=== PATIENT | female | born 1980 | race Caucasian/White ===

== ENCOUNTER 2025-01-28 16:20 | Outpatient (CLI) | payer BC, SELFPAY ==
--- OUTSIDE RECORDS SUMMARY | 2024-12-18 14:48 | XMS_ITS | Encounter Summary ---
Author Organization [facility] Address [address] [place] [address] Care Team Providers Care Rivet Tester Name Role Phone Edmar Cazares MD Primary Care Provider Reason for Referral * Diagnostic Imaging (Routine) - Closed Specialty Diagnoses / Procedures [facility] To Contact Radiology Diagnoses Encounter for screening mammogram for malignant neoplasm of breast Procedures Mammo Screening Digital Tomosynthesis Bilateral With CAD Edmar Cazares MD [address] [place] [address] Phone: tel: fax: [address] [address] Phone: tel: Referral ID Status Reason Start Date Expiration Date Visits Re quested Visits Authorized [id number] Closed 08/06/2024 08/06/2025 1 1 Reason for Visit * Diagnostic Imaging (Routine) - Closed Specialty Diagnoses / Procedures [facility] Ref[facility] To Contact Radiology Diagnoses Encounter for screening mammogram for malignant neoplasm of breast Procedures Mammo Screening Digital Tomosynthesis Bilateral With CAD Edmar Cazares MD [address] [place] [address] Phone: tel: fax: [address] [address] Phone: tel: Referral ID Status Reason Start Date Expiration Date Visits Re quested Visits Authorized [id number] Closed 08/06/2024 08/06/2025 1 1 Encounter Details Date Type Department Care Team (Latest Contact Info) Description 12/18/2024 2:48 PM EDT - 12/18/2024 11:59 PM EDT Hospital Encounter [facility] [address] [place] [address] Edmar Cazares MD [address] [place], [place] [phone] Encounter for screening mammogram for malignant neoplasm [...] Master's degree (e.g., MA, MS, Chalo, MEd, ADVENTURE CHALLENGE INSTRUCTOR, JIMMIE) 04/28/2023 Comments No Sex and Gender Information Value Date Recorded Sex Assigned at Not on file Legal Sex Female 4:03 PM EDT Gender Identity Not on file Sexual Orientation Not on file documented as of this encounter Medications at Time of Discharge Acetylcysteine (Nac 600) capsule capsule ciprofloxacin (CIPRO) 500 MG tabletIndications: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 14 tablet 01/26/2024 DHEA 10 MG capsule Inositol 650 MG tablet methylPREDNISolone (MEDROL) 4 MG dose packIndications:Crohn 's disease with complication, unspecified gastrointestinal tract location Take as directed on package instructions. 1 each 01/26/2024 metroNIDAZOLE (FLAGYL) 500 MG tabletIndications:Tire Shop Mechanic hn's disease with complication, unspecified gastrointestinal tract location Take 1 tablet by mouth 3 (Three) Times a Day. 21 tablet 01/26/2024 naltrexone 1 mg/mL oral suspension 10/26/2020 [place]-3 Fatty Acids (FISH-EPA PO) 03/28/2022 MV-Min-Fe Fum-FA-DHA ( 1 PO) 03/28/2022 promethazine-dextrome thorphan (PROMETHAZINE-DM) 6.25-15 MG/5ML syrupIndications:Acut e bronchitis with bronchospasm Take 5 ml QID PRN cough/congest ion 180 mL 07/10/2023 Urea (HYDRO 40 EX) 06/28/2022 vitamin E 100 UNIT capsule documented as of this encounter Plan of Treatment Not on file documented as of this encounter Procedures Procedure [...] breast documented in this encounter Care Teams Rivet Tester Relationship Specialty Start Date End Date Edmar Cazares MD [address] [place] [address] PCP - General Box Coverer Hand 11/07/24 documented as of this encounter
--- OUTSIDE RECORDS SUMMARY | 2025-01-28 16:22 | XMS_ITS | Clinical Summary ---
Author Organization [facility] Address [address] [place] [address] Care Team Providers Care Snow Groomer Name Role Phone Edmar Cazares MD Primary Care Provider [phone] Allergies Active Allergy Reactions Criticality Noted Date Comments Adalimumab Unknown - High Severity 04/28/2023 Influenza Vac Split Quad Unknown - High Severity 04/28/2023 Infliximab Unknown - Low Severity 04/28/2023 Medications naltrexone 1 mg/mL oral suspension 1 Active DHEA 10 MG capsule A ctive [place]-3 Fatty Acids (FISH-EPA PO) 2 Active vitamin E 100 UNIT capsule Active Acetylcysteine (Nac 600) capsule capsule Active MV-Min-Fe Fum-FA-DHA ( 1 PO) 2 Active Urea (HYDRO 40 EX) 3 Active Inositol 650 MG tablet Active promethazine-dextrom ethorphan (PROMETHAZINE-DM) 6.25-15 MG/5ML syrupIndications:Acu te bronchitis with bronchospasm Take 5 ml QID PRN cough/conges tion 180 mL 4 Active ciprofloxacin (CIPRO) 500 MG tabletIndications:Cr ohn's disease with complication, unspecified gastrointestinal tract location Take 1 tablet by mouth 2 (Two) Times a Day. 14 tablet 4 Active metroNIDAZOLE (FLAGYL) 500 MG tabletIndications:Cr ohn's disease with complication, unspecified gastrointestinal tract location Take 1 tablet by mouth 3 (Three) Times a Day. 21 tablet 4 Active methylPREDNISolone (MEDROL) 4 MG dose packIndications:Croh n's disease with complication, unspecified gastrointestinal tract location Take as directed on package instructions . 1 each Active Active Problems Problem Noted Date Diagnosed Date Normal gynecologic examination 04/28/2023 Overview (05/02/2023): SCREENING TESTS Year 2017 2017 2018 2019 2020 2021 2022 2023 2024 2025 2026 2027 2028 2029 2030 2031 2032 Age 43 PAP 11 HPV high risk 11 BETSY [Birads] MAE (5 year) Tyrer Viki (lifetime) Colonoscopy DEXA [T-score] Frax [hip/any] Enter the month test was performed. If month not known, enter X' Black numbers = normal results Red numbers = abnormal results Black X = patient reported normal Red X - patient reported abnormal Referred by: Profession: Other info: Encounters Date Type Department Care Team Description 12/18/2024 2:48 PM EDT - 12/18/2024 11:59 PM [place] [address] Edmar Cazares MD Encounter for screening mammogram for malignant neoplasm of breast Discharge Disposition: Home or Self Care 12/18/2024 Travel from Last 3 Months Family History Medical History Relation Name Comments Breast cancer Paternal Aunt Ovarian cancer Paternal Aunt Relation Name Status Comments Paternal Aunt Social History Tobacco Use Types Packs/Day Years Used Date Smoking Tobacco: Never Passive Smoke Exposure: Never Smokeless Tobacco: Never Tobacco Cessation:Counseling Given: Not Answered Alcohol Use Standard Drinks/Week Comments Not Currently 0 (1 standard drink = 0.6 oz pur e alcohol) Education Answer Date Recorded What is the highest level of school you have completed or the highest degree you have received? Master's degree (e.g., MA, MS, Chalo, MEd, GLOBAL ACCOUNT EXECUTIVE, JIMMIE) 04/28/2023 Comments No Sex and Gender Information Value Date Recorded Sex Assigned at Not on file Legal Sex Female 4:03 PM EDT Gender Identity Not on file Sexual Orientation Not on file Last Filed Vital Signs Vital Sign Reading Time Taken Comments Blood Pressure 102/64 01/26/2024 4:54 PM EDT Pulse 96 01/26/2024 4:54 PM EDT Temperature 37.1 C (98.7 F) 01/26/2024 4:54 PM EDT Respiratory Rate 16 01/26/2024 4:54 PM EDT Oxygen Saturation 95% 01/26/2024 4:54 PM EDT Inhaled Oxygen Concentration - - Weight 37.2 kg (82 lb) 01/26/2024 4:54 PM EDT Height 157.5 cm (5' 2 ) 01/26/2024 4:54 PM EDT Body Mass Index 15 01/26/2024 4:54 PM EDT Plan of Treatment Health Maintenance Due Date Last Done Comments ANNUAL PHYSICAL 04/27/2023 HEPATITIS C SCREENING 04/27/2023 COVID-19 Vaccine (1 - 2023-2 5 season) 2024 Annual Gynecologic Pelvic an d Breast Exam 04/29/2024 04/28/2023 TDAP/TD VACCINES (3 - Td or Tdap) 12/22/2025 12/23/2015, 12/10/2015 PAP SMEAR 04/28/2026 04/28/2023 MAMMOGRAM 12/18/2026 12/18/2024, 08/30/2023, 10/26/2021 Pneumococcal Vaccine 0-49 Aged Out No longer eligible based on patient's age to complete this topic Procedures Procedure Name Priority Date/Time Associated Diagnosis Comments MAMMO SCREENING DIGITAL TOMOSYNTHESIS BILATERAL W CAD Routine 12/18/2024 4:07 PM EDT Encounter for screening mammogram for malignant neoplasm of breast AMBRY GENETIC ASSESSMENT Routine 12/18/2024 9:24 AM EDT LIQUID-BASED PAP SMEAR WITH HPV GENOTYPING REGARDLESS OF INTERPRETATION, [facility] (ZACK,COR,MAD) Routine 04/28/2023 9:07 AM EST Well woman exam with routine gynecological exam from Last 3 Months or Most Recently Relevant to Health Maintenance Results * Mammo Screening Digital Tomosynthesis Bilateral [...] Cazares MD IMG MAMMOGRAPHY ORDERABLES Final Result * Sovi GENETIC RISK ASSESSMENT QUESTIONNAIRE - , (12/18/2024 9:24 AM EDT) Pathologist [facility] [place] 8.4 [employer] NCCN NCCN not met [facility] Comment:High Risk Cancer Ris k Assessment 12/18/2024 9:24 AM EDT us Edmar Cazares MD GENETIC TESTING Final Result [facility]
[address] [place] [address], [place] [phone] * LIQUID-BASED PAP SMEAR WITH HPV GENOTYPING REGARDLESS OF INTERPRETATION (ZACK,COR,MAD) (04/28/2023 9:07 AM EST) Pathologist [facility] Reference Lab Report [facility] [address] [place] [address] or [phone] Yo Ga M.D., Auctioneer Automobile PATIENT NAME [facility] [id number] AGE SEX SSN CLIENT REF # [id number] 43 1980 F [id number] MESHA ORTEGA APRN REQUESTING Artemio ATTENDING Artemio COPY TO. [address], [facility] [address] [place] [address] DATE COLLECTED DATE RECEIVED DATE REPORTED 04/28/2023 04/28/2023 05/02/2023 ThinPrep Pap with Cytyc Imaging DIAGNOSIS: Negative for intraepithelial lesion or malignancy Multiple factors can influence accuracy of Pap tests; therefore, screening at regular intervals is necessary for early cancer detection. SPECIMEN ADEQUACY: SATISFACTORY FOR EVALUATION Transformation zone is present. SOURCE OF SPECIMEN: CERVICAL/ENDOCERVI BENTON SLIDES: 1 CLINICAL HISTORY: Well woman exam with routine gynecological exam HPV HR-HPV POOL: Negative The Aptima HPV assay is an in vitro nucleic acid amplification test for the qualitative detection of E6/E7 viral messenger RNA from 14 high risk types of HPV in cervical specimens. The high risk HPV types detected include: 16, 18, 31, 33, 35, 39, 45, 51, 52, 56, 58, 59, 66, 68 Chlamydia / Gonorrhea CHLAMYDIA TRACHOMATIS: Negative NEISSERIA GONORRHOEAE: Negative The Aptima Combo 2 assay is a target amplification nucleic acid probe test that utilizes target capture for the in vitro qualitative detection and differentiation of ribosomal RNA from Chlamydia trachomatis and Neisseria gonorrhoeae to aid in the diagnosis of chlamdial and gonococcal disease using the [place] system. Trichomonas TRICHOMONAS VAGINALIS: Negative The Aptima Trichomonas vaginalis assay is an in vitro qualitative nucleic acid amplification test for the detection of ribosomal RNA to aid in the diagnosis of trichomoniasis. WEAPONS SPECIALIST: MISSY EUGENE (ASCP) CPT CODES: 12253, 72757, 10851, 52288, 78878 05/02/2023 2:07 PM [facility] ThinPrep Vial Cervix uteri structure / Unknown Collection / Unknown 04/28/2023 9:07 AM EST 04/28/2023 9:07 AM EST Mesha Ortega CNM PATHOLOGY/CYTOLOGY ORDERABLES Final Result [facility]
[address] [place] [address], [place] [phone] from Last 3 Months or Most Recently Relevant to Health Maintenance Insurance [facility] PPO Care Teams Snow Groomer Relationship Specialty Start Date End Date Edmar Cazares MD [address] [place] [address] PCP - General Senior Database Engineer 11/07/24
--- OUTSIDE RECORDS SUMMARY | 2025-01-28 16:22 | XMS_ITS | Clinical Summary ---
Author Organization Healthcare Address [address] [place] [id number] Care Team Providers Care Deputy Manager Name Role Phone Unavailable Primary Care Provider Unavailabl e Immunizations Immunization Administration Dates Next Due Tdap 12/23/2015,12/10/2015 Family History Medical History Relation Name Comments Irritable bowel syndrome Brother Hyperlipidemia Father Hypertension Mother Diabetes type I Paternal Grandfather Hypothyroidism Paternal Grandmother Lung cancer Paternal Grandmother Relation Name Status Comments Brother Father Mother Paternal Grandfather Paternal Grandmother Social History Tobacco Use Types Packs/Day Years Used Date Smoking Tobacco: Never Alcohol Use Standard Drinks/Week Comments No 0 (1 standard drink = 0.6 oz pur e alcohol) Comments Unknown Sex and Gender Information Value Date Recorded Sex Assigned at Not on file Legal Sex Female 7:19 PM EDT Gender Identity Not on file Sexual Orientation Not on file Last Filed Vital Signs Vital Sign Reading Time Taken Comments Blood Pressure 98/64 06/16/2017 2:22 PM EST Pulse - - Temperature - - Respiratory Rate - - Oxygen Saturation - - Inhaled Oxygen Concentration - - Weight 43.9 kg (96 lb 12.5 oz) 06/16/2017 2:22 P M EST Height 152.4 cm (5') 06/16/2017 2:22 PM EST Body Mass Index 18.9 06/16/2017 2:22 PM EST Plan of Treatment Not on file
--- OUTSIDE RECORDS SUMMARY | 2025-01-28 16:22 | XMS_ITS | Encounter Summary ---
Author Organization [facility] Address [address] [place] [address] Care Team Providers Care Construction Or Leak Gang Laborer Name Role Phone Edmar Cazares MD Primary Care Provider [phone] Encounter Details Date Type Department Care Team (Latest Contact Info) Description 12/18/2024 Travel Social History Tobacco Use Types Packs/Day Years [...] Master's degree (e.g., MA, MS, Chalo, MEd, BLOW MOULDING MACHINE OPERATOR, JIMMIE) 04/28/2023 Comments No Sex and Gender Information Value Date Recorded Sex Assigned at Not on file Legal Sex Female 4:03 PM EDT Gender Identity Not on file Sexual Orientation Not on file documented as of this encounter Plan of Treatment Not on file documented as of this encounter Visit Diagnoses Not on filedocumented in this encounter Care Teams Construction Or Leak Gang Laborer Relationship Specialty Start Date End Date Edmar Cazares MD [address] [place] [address] PCP - General Housekeeper Child Care 11/07/24 documented as of this encounter
[2025-01-28 16:46] LABS: Hematocrit 28.1 % (37.0-47.0); Hemoglobin 8.7 g/dL (12.2-16.2); Immature Granulocytes % 0.4 %; Mean Corpuscular HGB Conc 31.0 g/dL (31.8-35.4); Mean Corpuscular Hemoglobin 20.4 pg (27.0-31.2); Mean Corpuscular Volume 65.8 fl (81-99); Nucleated Red Blood Cells % 0 %; Platelet Count 580 K/mm3 (142-424); Red Blood Count 4.27 M/mm3 (4.20-5.40); Red Cell Distribution Width-SD 45.0 fL; White Blood Count 7.4 K/mm3 (4.8-10.8)
[2025-01-28 17:08] LABS: Albumin Level 3.4 g/dl (3.5-5.0); Chloride 104 mmol/L (98-107); Sodium 136 mmol/L (136-145)
[2025-01-28 17:09] LABS: Potassium 4.0 mmoL/L (3.5-5.1)
[2025-01-28 17:11] LABS: Alanine Aminotransferase 9 U/L (12-78); Albumin/Globulin Ratio 1.2 (1.1-1.8); Alkaline Phosphatase 104 U/L (38-126); Anion Gap 11.0 mEq/L (5-15); Aspartate Amino Transferase 18 U/L (14-36); Bilirubin,Total 0.2 mg/dl (0.2-1.3); Blood Urea Nitrogen 9 mg/dl (7-17); Calcium 8.5 mg/dl (8.4-10.2); Carbon Dioxide 25 mmol/L (22.0-30.0); Creatinine,Serum 0.60 mg/dl (0.52-1.04); Estimated Glomerular Filt Rate 109 ml/min (>60); GFR (African American) 131 ML/MIN (>60); Globulin 2.9 g/dL (1.3-3.2); Glucose 107 mg/dl (74-100); Iron 24 ug/dL (37-170); Total Protein,Serum 6.3 g/dl (6.3-8.2)
[2025-01-28 17:19] LABS: C-Reactive Protein 94.7 mg/L (0-4)
[2025-01-28 17:21] LABS: Total Iron Binding Capacity 235 ug/dL (265-497)
[2025-01-28 18:42] LABS: Vitamin B12 > 1000 pg/mL (239-931)
[2025-01-31 15:11] LABS: Saccharomyces cerevisiae, IgA <20.0 Units (0.0-24.9); Saccharomyces cerevisiae, IgG 26.4 Units (0.0-24.9)
[2025-02-08 14:11] LABS: 1,25 Dihydroxy Vitamin D 58 pg/mL (.); 1,25-Dihydroxy, Vitamin D-2 <10 pg/mL (.); 1,25-Dihydroxy, Vitamin D-3 58 pg/mL (.)
== END 2025-01-28 23:59 | disposition home or self-care (01) ==
LOC: LAB 16:21
PROVIDERS: PCP General Practice; Visit Provider Internal Medicine Gastroenterology
DX: K50.813 Crohn's disease of both small and large intestine with fistula (principal); K74.69 Other cirrhosis of liver; B19.20 Unspecified viral hepatitis C without hepatic coma; R63.4 Abnormal weight loss; R14.0 Abdominal distension (gaseous)
CPT/HCPCS: 36415; 80053; 82607; 82652; 83540; 83550; 85025; 85651; 86140; 86256; 86671

== ENCOUNTER 2025-02-14 10:57 | Outpatient (CLI) | payer BC, SELFPAY ==
--- OUTSIDE RECORDS SUMMARY | 2023-12-05 14:15 | XMS_ITS ---
Author Organization [facility] Address [address] [place] [phone] Care Team Providers Care Tnt Line Supervisor Name Role Phone Unknown, PCP Primary Care Provider Jeannette Castellano, [id number] Annette [facility] [phone] REASON FOR VISIT Tuberculosis (TB) / PPD Test Encounters Encounter Location Date Provider Diagnosis [address] [facility] [address] [place] [address] 12/05/2023 Annette Castellano Plan Of Treatment No Information Progress Notes * Riley JACOBB:1980 (45 yo F)Acc No.[id number]:12/05/2023 Patient: Meri TAPIA Provider: Oscar Castellano APRN :1980 A ge:43 Y S ex:Female Date:12/05/2023 External Visit ID:[id number] [facility] [facility] Pcp:PCP Unknown Subjective: * Chief Complaints: * 1 . Tuberculosis (TB) / PPD Test. * Medical History: Objective: * Vitals: Assessment: Plan: * Treatment: * Billing Information: * Visit Code: * Procedure Codes: Care Plan Details* * Electronic signature of TA14 304 Annette Castellano APRN on 02/14/2025 at 10:00 AM CDT Sign off status: Pending * Provider: Oscar Castellano APRN Date: 12/05/2023 Generated for Jessica ng/Faxing/eTransmitting on: 02/14/2025 10:00 AM CDT
--- OUTSIDE RECORDS SUMMARY | 2024-12-18 14:48 | XMS_ITS | Encounter Summary ---
Author Organization [facility] Address [address] [place] [address] Care Team Providers Care Meat Grader Name Role Phone Edmar Cazares MD Primary Care Provider [phone] Reason for Referral * Diagnostic Imaging (Routine) - Closed Specialty Diagnoses / Procedures [facility] Referred To Contact Radiology Diagnoses Encounter for screening mammogram for malignant neoplasm of breast Procedures Mammo Screening Digital Tomosynthesis Bilateral With CAD Edmar Cazares MD [address] [place] [address] Phone: tel: fax: [address] [address] Phone: tel: Referral ID Status Reason Start Date Expiration Date Visits Re quested Visits Authorized [id number] Closed 08/06/2024 08/06/2025 1 1 Reason for Visit * Diagnostic Imaging (Routine) - Closed Specialty Diagnoses / [facility] To Contact Radiology Diagnoses Encounter for screening mammogram for malignant neoplasm of breast Procedures Mammo Screening Digital Tomosynthesis Bilateral With CAD Edmar Cazares MD [address] [place] [address] Phone: tel: fax: [address] [address] Phone: tel: Referral ID Status Reason Start Date Expiration Date Visits Re quested Visits Authorized [id number] Closed 08/06/2024 08/06/2025 1 1 Encounter Details Date Type Department Care Team (Latest Contact Info) Description 12/18/2024 2:48 PM EDT - 12/18/2024 11:59 PM EDT Hospital Encounter [facility] [address] [place] [address] Edmar Cazares MD [address] [place], [place] [id number] Encounter for screening mammogram for malignant neoplasm of breast Discharge Disposition: Home or Self Care Social History Tobacco Use Types Packs/Day Years Used Date Smoking Tobacco: Never Passive Smoke Exposure: Never Smokeless Tobacco: Never Alcohol Use Standard Drinks/Week Comments Not Currently 0 (1 standard drink = 0.6 oz pur e alcohol) Education Answer Date Recorded What is the highest level of school you have completed or the highest degree you have received? Master's degree (e.g., MA, MS, Chalo, MEd, CORPORATE TRAFFIC MANAGER, JIMMIE) 04/28/2023 Comments No Sex and Gender Information Value Date Recorded Sex Assigned at Not on file Legal Sex Female 4:03 PM EDT Gender Identity Not on file Sexual Orientation Not on file documented as of this encounter Medications at Time of Discharge Acetylcysteine (Nac 600) capsule capsule ciprofloxacin (CIPRO) 500 MG tabletIndications:Energy Derivatives Trader hn's disease with complication, unspecified gastrointestinal tract location Take 1 tablet by mouth 2 (Two) Times a Day. 14 tablet 01/26/2024 DHEA 10 MG capsule Inositol 650 MG tablet methylPREDNISolone (MEDROL) 4 MG dose packIndications:Crohn 's disease with complication, unspecified gastrointestinal tract location Take as directed on package instructions. 1 each 01/26/2024 metroNIDAZOLE (FLAGYL) 500 MG tabletIndications:Energy Derivatives Trader hn's disease with complication, unspecified gastrointestinal tract location Take 1 tablet by mouth 3 (Three) Times a Day. 21 tablet 01/26/2024 naltrexone 1 mg/mL oral suspension 10/26/2020 [place]-3 Fatty Acids (FISH-EPA PO) 03/28/2022 MV-Min-Fe Fum-FA-DHA ( 1 PO) 03/28/2022 promethazine-dextrome thorphan (PROMETHAZINE-DM) 6.25-15 MG/5ML syrupIndications:Acut e bronchitis with bronchospasm Take 5 ml QID PRN cough/congest ion 180 mL 07/10/2023 Urea (HYDRO 40 EX) 06/28/2022 vitamin E 100 UNIT capsule documented as of this encounter Plan of Treatment Upcoming Encounters Date Type Department Care Team (Late st Contact Info) Description 02/21/2025 12:30 PM EDT Appointment [facility] [address] [place] [address] documented as of this encounter Procedures Procedure Name Priority Date/Time Associated Diagnosis Comments MAMMO SCREENING DIGITAL TOMOSYNTHESIS BILATERAL W CAD Routine 12/18/2024 4:07 PM EDT Encounter for screening mammogram for malignant neoplasm of breast documented in this encounter Results * Mammo Screening Digital Tomosynthesis Bilateral With CAD (12/18/2024 4:07 PM EDT) Anatomical Region Laterality Modality Breast N/A Mammography 12/24/2024 4:22 PM EDT Impressions 12/24/2024 4:27 PM EDT No findings suspicious for malignancy. ACR BI-RADS CATEGORY: 1, NEGATIVE RECOMMENDATION: Yearly mammogram, yearly clinical breast exam, and encourage self breast awareness. CAD was used. The standard false negative rate of mammography is between 10% and 25%. Complex patterns or increased breast density will markedly elevate the false negative rate of mammography. A letter, in lay terminology, with the results of this exam will be mailed to the patient. If there is a palpable area of concern, biopsy should be considered regardless of imaging findings. 12/24/2024 4:27 PM by Rosangela Carvajal MD on Narrative 12/24/2024 4:27 PM EDT ROUTINE DIGITAL SCREENING MAMMOGRAM WITH TOMOSYNTHESIS HISTORY: Routine screening. IMAGE COMPARISON: Extending to 2021. TECHNIQUE: Low dose full field digital breast tomosynthesis imaging was performed with 2D and 3D acquisitions consisting of bilateral CC and MLO views. Implant displaced views. FINDINGS: There are scattered fibroglandular densities. The fibroglandular pattern appears stable. There is no mass, worrisome microcalcifications, or architectural distortion to suggest development of malignancy. There are stable subpectoral silicone implants in place. Edmar Cazares MD IMG MAMMOGRAPHY ORDERABLES Final Result documented in this encounter Visit Diagnoses Diagnosis Encounter for screening mammogram for malignant neoplasm of breast documented in this encounter Care Teams Meat Grader Relationship Specialty Start Date End Date Edmar Cazares MD [address] [place] [address] PCP - General Aerial Planting And Cultivation Manager 11/07/24 documented as of this encounter
--- OUTSIDE RECORDS SUMMARY | 2025-02-06 13:40 | XMS_ITS | Encounter Summary ---
[facility] Organization [facility] Address [address] [place] [id number] Care Team Providers Care Swine Genetics Researcher Name Role Phone Edmar Cazares MD Primary Care Provider [phone] Encounter Details Date Type Department Care Team (Late Contact Info) Description 02/06/2025 1:40 PM EDT Lab [facility] [address] [place] [address] Crohn's disease of both small [...] Master's degree (e.g., MA, MS, Chalo, MEd, STYLE ADVISOR, JIMMIE) 04/28/2023 Comments No Sex and Gender Information Value Date Recorded Sex Assigned at Not on file Legal Sex Female 4:03 PM EDT Gender Identity Not on file Sexual Orientation Not on file documented as of this encounter Plan of Treatment Upcoming Encounters Date Type Department Care Team (Late st Contact Info) Description 02/21/2025 12:30 PM EDT Appointment [facility] OUTPATIENT ONCOLOGY [address] [place] [address] documented as of this encounter Procedures Procedure Name Priority Date/Time Associated Diagnosis Comments QUANTIFERON TB GOLD PLUS CLIENT INCUBATED KIT Routine 02/06/2025 1:37 PM EDT Crohn's disease of both small and large intestine with fistula Iron deficiency anemia, unspecified iron deficiency anemia type documented in this encounter Results * (ABNORMAL) QuantiFERON TB Plus Client Incubated Kit (02/06/2025 1:37 PM EDT) [facility] QuantiFERON Criteria Comment 02/08/2025 11:07 PM [...] 1:37 PM EDT 02/06/2025 1:37 PM EDT [facility] - 02/08/2025 11:07 PM EDT Performed at: [address] [place] [id number] Twisting Operator: Yoel More PhD, Phone: [phone] Rey Mooney MD LAB BLOOD ORDERABLES Final Result [facility] [address] [place] [address], documented in this encounter Visit Diagnoses Diagnosis Crohn's disease of both small and large intestine with fistula Iron deficiency anemia, unspecified iron deficiency anemia type documented in this encounter Care Teams Swine Genetics Researcher Relationship Specialty Start Date End Date Edmar Cazares MD [address] [place] [address] PCP - General Fiscal Specialist 11/07/24 documented as of this encounter
--- OUTSIDE RECORDS SUMMARY | 2025-02-14 11:00 | XMS_ITS | Encounter Summary ---
Author Organization [facility] Address [address] [place] [address] Care Team Providers Care Behavioral Health Therapist Name Role Phone Edmar Cazares MD Primary Care Provider [phone] Encounter Details Date Type Department Care Team (Latest Contact Info) Description 02/06/2025 Travel Social History Tobacco Use Types Packs/Day [...] degree (e.g., MA, MS, Chalo, MEd, DIRECTOR IMMUNOLOGY, JIMMIE) 04/28/2023 Comments No Sex and Gender Information Value Date Recorded Sex Assigned at Not on file Legal Sex Female 4:03 PM EDT Gender Identity Not on file Sexual Orientation Not on file documented as of this encounter Plan of Treatment Upcoming Encounters Date Type Department Care Team (Late st Contact Info) Description 02/21/2025 12:30 PM EDT Appointment [facility] OUTPATIENT ONCOLOGY [address] [place] [address] documented as of this encounter Visit Diagnoses Not on filedocumented in this encounter Care Teams Behavioral Health Therapist Relationship Specialty Start Date End Date Edmar Cazares MD [address] [place] [address] PCP - General Animal Sitter 11/07/24 documented as of this encounter
--- OUTSIDE RECORDS SUMMARY | 2025-02-14 11:00 | XMS_ITS | Patient Health Record ---
Author Organization [facility] Address [address] [place] [address] Care Team Providers Care Hosiery Repairer Name Role Phone Unknown, PCP Primary Care Provider Jeannette Castellano, [id number] [phone] Reason For Referral No Information Medications Medication SIG (Take, Route, Fr equency, Duration) Notes Start Date End Date Status Naltrexone HCl 50 MG 1 tab(s) orally once a day Active Cefdinir 300 MG 1 cap(s) orally ever y 12 hours; Duration: 10 day(s) 12/10/2017 Active Ciprodex 0.3-0.1 % 4 gtt in each affect ed ear 2 times a day; Duration: 7 days 12/10/2017 Ac tive Immunizations Vaccine Route Administration Date Status Comme nts PPD Aplisol ID Intradermal 05/13/2018 Administered PPD Aplisol ID Intradermal 05/13/2020 Administered PPD Aplisol ID Intradermal 02/15/2021 Administered PPD Aplisol ID Intradermal 12/06/2022 Administered PPD Aplisol ID Intradermal 05/15/2024 Administered zPPD ID Intradermal 04/17/2016 Administered Encounters Encounter Location Date Provider Diagnosis [id number] [address] 05/15/2024 Annette Castellano PPD screening test Z11.1 Assessments Encounter Date Diagnosis (ICD Code) Assessment Notes Treatment Notes Treatment Clinical Notes Section Notes 05/15/2024 PPD screening test (ICD-10 - Z11.1) Patient reports they have never had a positive ppd reaction. Plan Of Treatment No Information Insurance Providers Payer Name Payer Address Payer Phone Subscriber Number Group Number Insured Name Patient Relationship to Insured Coverage Start Date Coverage End Date PROMPT PAY/Bill to Patient CecilMatta Self - patient is the insured Medical (General) History Medical History History ICD Code crohns Surgical History Surgery Date(Month/Year) c/s 2016 breast augmentation 2011 partial colectomy 2006 Hospitalization History Reason Date(Month/Year) childbirth 2016
--- OUTSIDE RECORDS SUMMARY | 2025-02-14 11:00 | XMS_ITS | Clinical Summary ---
Author Organization Healthcare Address [address] [place] [address] Care Team Providers Care Power Generation Engineer Name Role Phone Unavailable Primary Care Provider Unavailabl e Encounters Date Type Department Care Team Description 02/11/2025 Community Orders Community Practice [address] [place] [address] Rey Mooney MD Crohn's disease of both small and large intestine with fistula (CMS/HCC) (Primary Dx) from Last 3 Months Immunizations Immunization Administration Dates Next Due Tdap [...] 06/16/2017 2:22 PM EST Plan of Treatment Upcoming Encounters Date Type Department Care Team (Late st Contact Info) Description 02/26/2025 4:20 PM EDT Appointment [facility] [address] [place] [address] Health Maintenance Due Date Last Done Comments [facility]-Depression Screening 1980 [facility]-HIV Screening 1980 [facility]-Hepatitis C Screening 1980 [facility]-Infant/Child/Adol SDOH Screenings 1980 [facility]-Varicella Vaccines (1 of 2 - 13+ 2-dose series) 01/29/1993 [facility]- SDOH Screenings 01/29/1998 [facility]-Adult SDOH Screenings 01/29/1998 [facility]-Hepatitis B Vaccines (1 of 3 - 19+ 3-dose series) 01/29/1999 [facility]-Pap Smear 01/29/2001 HPV Vaccines (1 - 3-dose SCD M series) 01/29/2007 [facility]-Cervical Cancer Screening 01/29/2010 [facility]-HPV/Cotest 01/29/2010 CT Colonography 01/29/2025 Colonoscopy 01/29/2025 FIT-DNA 01/29/2025 FIT 01/29/2025 FOBT 01/29/2025 Sigmoidoscopy 01/29/2025 [facility]-Colorectal Cancer Screening 01/29/2025 [id number] Vaccine (1 - 2023- season) 2025 [facility]-Influenza Vaccine (#1) 2025 [facility]-DTaP,Tdap,and Td Vaccine s (3 - Td or Tdap) 12/22/2025 12/23/2015, 12/10/2015 [facility]-Zoster Vaccines (1 of 2) 01/29/2030 [facility]-HIB Vaccines Aged Out No longer e ligible based on patient's age to complete this topic [facility]-Hepatitis A Vaccines Aged Out No longer eligible based on patient's age to complete this topic [facility]-IPV Vaccines Aged Out No longer e ligible based on patient's age to complete this topic [facility]-Pneumococcal Vaccine: Pediatrics (0 to 5 Years) and At-Risk Patients (6 to 49 Years) Aged Out No longer eligible b ased on patient's age to complete this topic [facility]-Rotavirus Vaccines Aged Out No lo nger eligible based on patient's age to complete this topic Insurance [address]
--- OUTSIDE RECORDS SUMMARY | 2025-02-14 11:00 | XMS_ITS | Encounter Summary ---
Author Organization [facility] Address [address] [place] [address] Care Team Providers Care Algorithm Developer Name Role Phone Edmar Cazares MD Primary Care Provider [phone] Encounter Details Date Type Department Care Team [...] Master's degree (e.g., MA, MS, Chalo, MEd, BUTCHER ASSISTANT, JIMMIE) 04/28/2023 Comments No Sex and Gender Information Value Date Recorded Sex Assigned at Not on file Legal Sex Female 4:03 PM EDT Gender Identity Not on file Sexual Orientation Not on file documented as of this encounter Plan of Treatment Upcoming Encounters Date Type Department Care Team (Late st Contact Info) Description 02/21/2025 12:30 PM EDT Appointment [facility] OUTPATIENT ONCOLOGY [address] [place] [address] documented as of this encounter Visit Diagnoses Not on filedocumented in this encounter Care Teams Algorithm Developer Relationship Specialty Start Date End Date Edmar Cazares MD [address] [place] [address] PCP - General Plant Production Manager 11/07/24 documented as of this encounter
--- OUTSIDE RECORDS SUMMARY | 2025-02-14 11:00 | XMS_ITS | Encounter Summary ---
Author Organization Healthcare Address [address] [place] [address] Care Team Providers Care Entry Level Mechanical Engineer Name Role Phone Unavailable Primary Care Provider Unavailabl e Reason for Referral * Imaging (Routine) - Pending Review Specialty Diagnoses / Procedures Referred By Contac t Referred To Contact Radiology Diagnoses Crohn's disease of both small and large intestine with fistula (CMS/HCC) Procedures CT Enterography Rey Mooney MD [address] [facility] [address] [place] [address] Phone: tel: fax: Referral ID Status Reason Start Date Expiration Date V isits Requested Visits Authorized [id number] Pending Review 02/11/2025 08/13/2026 1 1 Encounter Details Date Type Department Care Team (Late Contact Info) Description 02/11/2025 [facility] Community Practice [address] [place] [address] Rey Mooney MD [address] [facility] [address] [place], [place] [id number] Crohn's disease of both small and large intestine with fistula (CMS/HCC) (Primary Dx) Social History Tobacco Use Types Packs/Day Years [...] Encounters Date Type Department Care Team (Late Contact Info) Description 02/26/2025 4:20 PM EDT Appointment [facility] [address] [place] [address] Scheduled Orders Name Type Priority Associated Diagnoses Orde r Schedule CT Enterography Imaging Routine Crohn's disease of both small and large intestine with fistula (CMS/HCC) Expected: 02/11/2025 (Approximate), Expires: 08/15/2026 documented as of this encounter Visit Diagnoses Diagnosis Crohn's disease of both small and large intestine with fistula (CMS/HCC)- Primary documented in this encounter
--- OUTSIDE RECORDS SUMMARY | 2025-02-14 11:00 | XMS_ITS | Clinical Summary ---
Author Organization [facility] Address [address] [place] [address] Care Team Providers Care Neurology Director Name Role Phone Edmar Cazares MD Primary Care Provider [phone] Allergies Active Allergy Reactions Criticality Noted Date Comments Adalimumab Unknown - High Severity 04/28/2023 Influenza Vac Split Quad Unknown - High Severity 04/28/2023 Infliximab Unknown - Low Severity 04/28/2023 Medications naltrexone 1 mg/mL oral suspension 1 Active DHEA 10 MG capsule A ctive [place]-3 Fatty Acids (FISH-EPA PO) 2 Active vitamin [...] directed on package instructions . 1 each 4 Active Active Problems Problem Noted Date Diagnosed Date Crohn's disease of both smal l and large intestine with fistula 02/03/2025 Normal gynecologic examination 04/28/2023 Overview (05/02/2023): SCREENING TESTS Year 2016 2017 2018 2019 2020 2021 2022 2023 [...] Encounters Date Type Department Care Team Description 02/06/2025 1:40 PM EDT Lab [facility] [address] [place] [phone] Crohn's disease of both small and large intestine with fistula; Iron deficiency anemia, unspecified iron deficiency anemia type 02/06/2025 Travel 12/18/2024 2:48 PM EDT - 12/18/2024 11:59 PM EDT Hospital Encounter [facility] [address] [facility] [address] [place] [address] Edmar Cazares MD Encounter for screening mammogram [...] Master's degree (e.g., MA, MS, Chalo, MEd, CHANGE ADVISOR, JIMMIE) 04/28/2023 Comments No Sex and [...] 01/26/2024 4:54 PM EDT Plan of Treatment Upcoming Encounters Date Type Department Care Team (Late st Contact Info) Description 02/21/2025 12:30 PM EDT Appointment [facility] OUTPATIENT ONCOLOGY [address] [place] [address] Health Maintenance Due Date Last Done Comments ANNUAL PHYSICAL 04/27/2023 HEPATITIS C SCREENING 04/27/2023 Annual Gynecologic Pelvic an d Breast Exam 04/29/2024 04/28/2023 COVID-19 Vaccine (1 - 2023-2 5 season) 2025 TDAP/TD VACCINES (3 - Td or Tdap) 12/22/2025 12/23/2015, 12/10/2015 MAMMOGRAM 12/18/2026 12/18/2024, 08/30/2023, 10/26/2021 Pneumococcal Vaccine 0-49 Aged Out No longer eligible based on patient's age to complete this topic Procedures Procedure Name Priority Date/Time Associated Diagnosis Comments QUANTIFERON TB GOLD PLUS CLIENT INCUBATED KIT Routine 02/06/2025 1:37 PM EDT Crohn's disease of both small and large intestine with fistula Iron deficiency anemia, unspecified iron deficiency anemia type MAMMO SCREENING DIGITAL TOMOSYNTHESIS BILATERAL W CAD Routine 12/18/2024 4:07 PM EDT Encounter for screening mammogram for malignant neoplasm of breast [facility] GENETIC ASSESSMENT Routine 12/18/2024 9:24 AM EDT from Last 3 Months Results * (ABNORMAL) QuantiFERON TB Plus Client Incubated Kit (02/06/2025 1:37 PM EDT) [facility] QuantiFERON Criteria Comment 02/08/2025 11:07 PM EDT [...] 1:37 PM EDT 02/06/2025 1:37 PM EDT [facility] - 02/08/2025 11:07 PM EDT Performed at: [address] [place] [id number] Business Test Analyst: Yoel More PhD, Phone: [phone] Rey Mooney MD LAB BLOOD ORDERABLES Final Result [facility] [address] [place] [address], [place] [phone] * Mammo Screening Digital Tomosynthesis Bilateral With [...] MD IMG MAMMOGRAPHY ORDERABLES Final Result * [employer] GENETIC RISK ASSESSMENT QUESTIONNAIRE - , (12/18/2024 9:24 AM EDT) [place] 8[employer] GENETICS NCCN NCCN not met [employer] Comment:High Risk Cancer Ris k Assessment 12/18/2024 9:24 AM EDT Edmar Cazares MD GENETIC TESTING Final Result SANGEETA GUEVARA
[address] [place] [address], [place] [phone] from Last 3 Months Insurance [facility] PPO Care Teams Neurology Director Relationship Specialty Start Date End Date Edmar Cazares MD [address] [place] [address] PCP - General It Support Engineer 11/07/24
[2025-02-14] MEDS: IRON SUCROSE COMPLEX 200 MG in 0.9 % SODIUM CHLORIDE 100 ML 220 MG IV (11:18)
[2025-02-14 11:23] VITALS: BP 99/52; PULSE 74; RESP 18; O2SAT 100
[2025-02-14 12:00] VITALS: BP 100/59; PULSE 78; RESP 18; O2SAT 100
== END 2025-02-14 12:00 | disposition home or self-care (01) ==
LOC: INF 10:58
PROVIDERS: PCP Internal Medicine Gastroenterology; Visit Provider Internal Medicine Gastroenterology
DX: D50.9 Iron deficiency anemia, unspecified (principal)
CPT/HCPCS: 96365; J1756

== ENCOUNTER 2025-02-17 14:27 | Outpatient (CLI) | payer BC, SELFPAY ==
--- OUTSIDE RECORDS SUMMARY | 2023-12-05 14:15 | XMS_ITS ---
Author Organization [facility] Address [address] [place] [phone] Care Team Providers Care Design Project Manager Name Role Phone Unknown, PCP Primary Care Provider Jeannette Castellano, [id number] An[facility]te [facility] REASON FOR VISIT Tuberculosis (TB) / PPD Test Encounters Encounter Location Date Provider Diagnosis [address] [facility] [address] [place] [address] 12/05/2023 Annette Castellano Plan Of Treatment No Information Progress Notes * Riley JACOBB:1980 (45 yo F)Acc No.[id number]:12/05/2023 Patient: Meri TAPIA Provider: Oscar Castellano APRN :1980 A ge:43 Y S ex:Female Date:12/05/2023 External Visit ID:[id number] [facility] [facility] Pcp:PCP Unknown Subjective: * Chief Complaints: * 1 . Tuberculosis (TB) / PPD Test. * Medical History: Objective: * Vitals: Assessment: Plan: * Treatment: * Billing Information: * Visit Code: * Procedure Codes: Care Plan Details* * Electronic signature of TA14 304 Annette Castellano APRN on 02/17/2025 at 01:29 PM CDT Sign off status: Pending * Provider: Oscar Castellano APRN Date: 12/05/2023 Generated for Arturoi ng/Faxing/eTransmitting on: 0 02/17/2025 01:29 PM CDT
--- OUTSIDE RECORDS SUMMARY | 2024-12-18 14:48 | XMS_ITS | Encounter Summary ---
Author Organization [facility] Address [address] [place] [address] Care Team Providers Care Wire Hanger Name Role Phone Edmar Cazares MD Primary Care Provider [phone] Reason for Referral * Diagnostic Imaging (Routine) - Closed Specialty Diagnoses / Procedures [facility] Referred To Contact Radiology Diagnoses Encounter for screening mammogram for malignant neoplasm of breast Procedures Mammo Screening Digital Tomosynthesis Bilateral With CAD Edmar Cazares MD [address] [place] [address] Phone: tel: fax: [address] [address] Phone: tel: Referral ID Status Reason Start Date Expiration Date Visits Re quested Visits Authorized [id number] Closed 08/06/2024 08/06/2025 1 1 Reason for Visit * Diagnostic Imaging (Routine) - Closed Specialty Diagnoses / Procedures [facility] Referred To Contact Radiology Diagnoses Encounter for screening mammogram for malignant neoplasm of breast Procedures Mammo Screening Digital Tomosynthesis Bilateral With CAD Edmar Cazares MD [address] [place] [address] Phone: tel: fax: [address] [address] Phone: tel: Referral ID Status Reason Start Date Expiration Date Visits Re quested Visits Authorized [id number] Closed 08/06/2024 08/06/2025 1 1 Encounter Details Date Type Department Care Team (Latest Contact Info) Description 12/18/2024 2:48 PM EDT - 12/18/2024 11:59 PM EDT Hospital Encounter [facility] [address] [place] [address] Edmar Cazares MD [address] [place], [place] [id number] Encounter for screening mammogram for malignant neoplasm [...] Master's degree (e.g., MA, MS, Chalo, MEd, LITHOGRAPHIC CAMERA OPERATOR, JIMMIE) 04/28/2023 Comments No Sex and Gender Information Value Date Recorded Sex Assigned at Not on file Legal Sex Female 4:03 PM EDT Gender Identity Not on file Sexual Orientation Not on file documented as of this encounter Medications at Time of Discharge Acetylcysteine (Nac 600) capsule capsule ciprofloxacin (CIPRO) 500 MG tabletIndications:Teletype Clerk hn's disease with complication, unspecified gastrointestinal tract location Take 1 tablet by mouth 2 (Two) Times a Day. 14 tablet 01/26/2024 DHEA 10 MG capsule Inositol 650 MG tablet methylPREDNISolone (MEDROL) 4 MG dose packIndications:Crohn 's disease with complication, unspecified gastrointestinal tract location Take as directed on package instructions. 1 each 01/26/2024 metroNIDAZOLE (FLAGYL) 500 MG tabletIndications:Teletype Clerk hn's disease with complication, unspecified gastrointestinal tract location Take 1 tablet by mouth 3 (Three) Times a Day. 21 tablet 01/26/2024 naltrexone 1 mg/mL oral suspension 10/26/2020 [place]-3 Fatty Acids (FISH-EPA PO) 03/28/2022 MV-Min-Fe Fum-FA-DHA ( 1 PO) 03/28/2022 promethazine-dextrome thorphan (PROMETHAZINE-DM) 6.25-15 MG/5ML syrupIndications:Acut e bronchitis with bronchospasm Take 5 ml QID PRN cough/congest ion 180 mL 07/10/2023 Urea (HYDRO 40 EX) 06/28/2022 vitamin E 100 UNIT capsule documented as of this encounter Plan of Treatment Upcoming Encounters Date Type Department Care Team (Late st Contact Info) Description 02/24/2025 1:00 PM EDT Appointment [facility] [address] [place] [address] documented as of this encounter [...] breast documented in this encounter Care Teams Wire Hanger Relationship Specialty Start Date End Date Edmar Cazares MD [address] [place] [address] PCP - General Sap Basis 11/07/24 documented as of this encounter
--- OUTSIDE RECORDS SUMMARY | 2025-02-06 13:40 | XMS_ITS | Encounter Summary ---
Author Organization [facility] Address [address] [place] [id number] Care Team Providers Care Laundry Aide Name Role Phone Edmar Cazares MD Primary Care Provider [phone] Encounter Details Date Type Department Care Team (Late Contact Info) Description 02/06/2025 1:40 PM EDT Lab [facility] [address] [place] [address] Crohn's disease of both small and large intestine with fistula; Iron deficiency anemia, unspecified iron deficiency anemia type Social History Tobacco Use Types Packs/Day Years [...] Master's degree (e.g., MA, MS, Chalo, MEd, BOX COVERING MACHINE OPERATOR, JIMMIE) 04/28/2023 Comments No Sex and Gender Information Value Date Recorded Sex Assigned at Not on file Legal Sex Female 4:03 PM EDT Gender Identity Not on file Sexual Orientation Not on file documented as of this encounter Plan of Treatment Upcoming Encounters Date Type Department Care Team (Late st Contact Info) Description 02/24/2025 1:00 PM EDT Appointment [facility] OUTPATIENT ONCOL[facility]Y [address] [place] [address] documented as of this encounter Procedures Procedure Name Priority Date/Time Associated Diagnosis Comments QUANTIFERON TB GOLD PLUS CLIENT INCUBATED KIT Routine 02/06/2025 1:37 PM EDT Crohn's disease of both small and large intestine with fistula Iron deficiency anemia, unspecified iron deficiency anemia type documented in this encounter Results * (ABNORMAL) QuantiFERON TB Plus Client Incubated Kit (02/06/2025 1:37 PM EDT) [facility] QuantiFERON Criteria Comment 02/08/2025 11:07 PM EDT [facility] Comment: QuantiFERON-TB Gold Plus is a qualitative indirect test for M tuberculosis infection (including disease) and is intended for use in conjunction with risk assessment, radiography, and other medical and diagnostic evaluations. The QuantiFERON-TB Gold Plus result is determined by subtracting the Nil value from either TB antigen (Ag) value. The Mitogen tube serves as a control for the test. QUANTIFERON TB1 AG VALUE 0.08 IU/mL 02/08/2025 11:07 PM EDT [facility] QUANTIFERON TB2 AG VALUE 0.05 IU/mL 02/08/2025 11:07 PM EDT [facility] QuantiFERON Nil Value 0.06 IU/mL 02/08/2025 11:07 PM EDT [facility] QuantiFERON Mitogen Value 0.55 IU/mL 02/08/2025 11:07 PM EDT [facility] QUANTIFERON-TB GOLD PLUS Indetermina te(A) Negative 02/08/2025 11:07 PM EDT [facility] Comment: Mitogen (positive control) gave low response. This may occur due to suboptimal pre-analytical handling. The specimen received for QuantiFERON testing was incubated by the ordering institution. Specific procedures outlined in our Directory of Services and in the package insert for the QuantiFERON Gold (In Tube) test must be followed to enable for proper stimulation of cells for the production of interferon gamma. Chemiluminescence immunoassay methodology Blood Venipuncture / Unknown 02/06/2025 1:37 PM EDT 02/06/2025 1:37 PM EDT [facility] - 02/08/2025 11:07 PM EDT Performed at: [address] [place] [id number] Engineer Soils: Yoel More PhD, Phone: [phone] Rey Mooney MD LAB BLOOD ORDERABLES Final Result [facility] [address] [place] [address], documented in this encounter Visit Diagnoses Diagnosis Crohn's disease of both small and large intestine with fistula Iron deficiency anemia, unspecified iron deficiency anemia type documented in this encounter Care Teams Laundry Aide Relationship Specialty Start Date End Date Edmar Cazares MD [address] [place] [address] PCP - General Pug Mill Operator Helper 11/07/24 documented as of this encounter
--- OUTSIDE RECORDS SUMMARY | 2025-02-17 14:29 | XMS_ITS | Clinical Summary ---
Author Organization Healthcare Address [address] [place] [address] Care Team Providers Care Diesel Engine Erector Name Role Phone Unavailable Primary Care Provider Unavailabl e Encounters Date Type Department Care Team Description 02/11/2025 Community Orders Community Practice [address] [place] [address] Rey Mooney MD Crohn's disease of both [...] Info) Description 02/26/2025 4:20 PM EDT Appointment [facility] CT [address] [place] [address] Health Maintenance Due Date Last [...] 01/29/2025 Sigmoidoscopy 01/29/2025 [facility]-Colorectal Cancer Screening 01/29/2025 [id number] Vaccine (1 - 2023- season) 2025 [facility]-Influenza [...] age to complete this topic Insurance [address]
--- OUTSIDE RECORDS SUMMARY | 2025-02-17 14:30 | XMS_ITS | Patient Health Record ---
Author Organization [facility] Address [address] [place] [address] Care Team Providers Care Admitting Officer Name Role Phone Unknown, PCP Primary Care Provider Jeannette Castellano, [id number] [facility] Reason For Referral No Information Medications Medication [...] Administered Encounters Encounter Location Date Provider Diagnosis [address] [address] 05/15/2024 Annette Castellano PPD screening test Z11.1 [...]
--- OUTSIDE RECORDS SUMMARY | 2025-02-17 14:30 | XMS_ITS | Clinical Summary ---
Author Organization [facility] Address [address] [place] [address] Care Team Providers Care Garden Center Manager Name Role Phone Edmar Cazares MD Primary Care Provider [phone] Allergies Active Allergy Reactions Criticality Noted Date Comments Adalimumab Unknown - High Severity 04/28/2023 Influenza Vac Split Quad Unknown - High Severity 04/28/2023 Infliximab Unknown - Low Severity 04/28/2023 Medications naltrexone 1 mg/mL oral suspension 1 Active DHEA 10 MG capsule A ctive Lilly-3 Fatty Acids (FISH-EPA PO) 2 Active vitamin [...] Team Description 02/06/2025 1:40 PM EDT Lab [facility] [address] [place] [phone] Crohn's disease of both small and large intestine with fistula; Iron deficiency anemia, unspecified iron deficiency anemia type 02/06/2025 Travel 12/18/2024 2:48 PM EDT - 12/18/2024 11:59 PM EDT Hospital Encounter [facility] [address] [facility] [address] [place] [address] Edmar Cazares MD Encounter for screening mammogram [...] Master's degree (e.g., MA, MS, Chalo, MEd, ANALOG DESIGN ENGINEER, JIMMIE) 04/28/2023 Comments No Sex and Gender [...] Info) Description 02/24/2025 1:00 PM EDT Appointment [facility] OUTPATIENT ONCOLOGY [address] [place] [address] Health Maintenance Due Date Last Done [...] screening mammogram for malignant neoplasm of breast [facility] GENETIC ASSESSMENT Routine 12/18/2024 9:24 AM EDT from Last 3 Months Results * (ABNORMAL) QuantiFERON TB Plus Client Incubated Kit (02/06/2025 1:37 PM EDT) [facility] QuantiFERON Criteria Comment 02/08/2025 11:07 PM EDT [...] 1:37 PM EDT 02/06/2025 1:37 PM EDT [facility] - 02/08/2025 11:07 PM EDT Performed at: [address] [place] [id number] State Game Protector: Yoel More PhD, Phone: [phone] Rey Mooney MD LAB BLOOD ORDERABLES Final Result [facility] [address] [place] [address], [place] [phone] * Mammo Screening Digital Tomosynthesis Bilateral With [...] MD IMG MAMMOGRAPHY ORDERABLES Final Result * [employer] GENETIC RISK ASSESSMENT QUESTIONNAIRE - , (12/18/2024 9:24 AM EDT) [place] 8[employer] GENETICS NCCN NCCN not met [employer] Comment:High Risk Cancer Ris k Assessment 12/18/2024 9:24 AM EDT Edmar Cazares MD GENETIC TESTING Final Result SANGEET[facility] GUEVARA
[address] [place] [address], [place] [phone] from Last 3 Months Insurance [facility] PPO Care Teams Garden Center Manager Relationship Specialty Start Date End Date Edmar Cazares MD [address] [place] [address] PCP - General Grants Administrator 11/07/24
--- OUTSIDE RECORDS SUMMARY | 2025-02-17 14:30 | XMS_ITS | Encounter Summary ---
Author Organization Healthcare Address [address] [place] [address] Care Team Providers Care Fish Cutting Machine Operator Name Role Phone Unavailable Primary Care Provider Unavailabl e Reason for Referral * Imaging (Routine) - Pending Review Specialty Diagnoses / Procedures Referred By Contac t Referred To Contact Radiology Diagnoses Crohn's disease of both small and large intestine with fistula (CMS/HCC) Procedures CT Enterography Rey Mooney MD [address] [facility] [address] [place] [address] Phone: tel: fax: Referral ID Status Reason Start Date Expiration Date V isits Requested Visits Authorized [id number] Pending Review 02/11/2025 08/13/2026 1 1 Encounter Details Date Type Department Care Team (Late Contact Info) Description 02/11/2025 [facility] [address] [place] [address] Rey Mooney MD [address] [facility] [address] [place], [place] [id number] Crohn's disease of both small and large [...] Info) Description 02/26/2025 4:20 PM EDT Appointment [facility] [address] [place] [address] Scheduled Orders Name Type Priority Associated Diagnoses Orde r Schedule CT Enterography Imaging Routine Crohn's disease of both small and large intestine with fistula (CMS/HCC) Expected: 02/11/2025 (Approximate), Expires: 08/15/2026 documented as of this encounter Visit Diagnoses Diagnosis Crohn's disease of both small and large intestine with fistula (CMS/HCC)- Primary documented in this encounter
--- OUTSIDE RECORDS SUMMARY | 2025-02-17 14:30 | XMS_ITS | Encounter Summary ---
Author Organization [facility] Address [address] [place] [address] Care Team Providers Care Frame Feeder Name Role Phone Edmar Cazares MD Primary Care Provider [phone] Encounter Details Date Type Department Care Team [...] degree (e.g., MA, MS, Chalo, MEd, DIRECTOR OF STUDENT FINANCIAL AID, JIMMIE) 04/28/2023 Comments No Sex and Gender Information Value Date Recorded Sex Assigned at Not on file Legal Sex Female 4:03 PM EDT Gender Identity Not on file Sexual Orientation Not on file documented as of this encounter Plan of Treatment Upcoming Encounters Date Type Department Care Team (Late st Contact Info) Description 02/24/2025 1:00 PM EDT Appointment [facility] OUTPATIENT ONCOLOGY [address] [place] [address] documented as of this encounter Visit Diagnoses Not on filedocumented in this encounter Care Teams Frame Feeder Relationship Specialty Start Date End Date Edmar Cazares MD [address] [place] [address] PCP - General Reactor Service Operator 11/07/24 documented as of this encounter
[2025-02-17 14:34] VITALS: BP 114/68; PULSE 84; RESP 17; TEMP 36.6; O2SAT 99
[2025-02-17] MEDS: IRON SUCROSE COMPLEX 200 MG in 0.9 % SODIUM CHLORIDE 100 ML 220 MG IV (14:34)
[2025-02-17] MEDS: SODIUM CHLORIDE 0.9% 10ML FLUSH SYRINGE 10 ML IV (14:34)
[2025-02-17 15:06] VITALS: BP 111/67; PULSE 88; RESP 14; TEMP 36.6; O2SAT 98
== END 2025-02-17 15:10 | disposition home or self-care (01) ==
LOC: INF 14:28
PROVIDERS: PCP General Practice; Visit Provider Internal Medicine Gastroenterology
DX: D50.9 Iron deficiency anemia, unspecified (principal)
CPT/HCPCS: 96365; J1756

== ENCOUNTER 2025-02-20 11:12 | Outpatient (CLI) | payer BC, SELFPAY ==
--- OUTSIDE RECORDS SUMMARY | 2023-12-05 14:15 | XMS_ITS ---
Author Organization [facility] Address [address] [place] [phone] Care Team Providers Care Patch Setter Name Role Phone Unknown, PCP Primary Care Provider Jeannette Castellano, [id number] Annette [facility] [phone] REASON FOR VISIT Tuberculosis (TB) / PPD Test Encounters Encounter Location Date Provider Diagnosis [address] [facility] [address] [place] [address] 12/05/2023 Annette Castellano Plan Of Treatment No Information Progress Notes * Riley JACOBB:1980 (45 yo F)Acc No.[id number]:12/05/2023 Patient: Meri TAPIA Provider: Oscar Castellano APRN :1980 A ge:43 Y S ex:Female Date:12/05/2023 External Visit ID:[id number] [facility] [facility] Pcp:PCP Unknown Subjective: * Chief Complaints: * 1 . Tuberculosis (TB) / PPD Test. * Medical History: Objective: * Vitals: Assessment: Plan: * Treatment: * Billing Information: * Visit Code: * Procedure Codes: Care Plan Details* * Electronic signature of TA14 304 Annette Castellano APRN on 02/20/2025 at 10:16 AM CDT Sign off status: Pending * Provider: Oscar Castellano APRN Date: 12/05/2023 Generated for Arturoi ng/Faxing/eTransmitting on: 0 02/20/2025 10:16 AM CDT
--- OUTSIDE RECORDS SUMMARY | 2025-02-06 13:40 | XMS_ITS | Encounter Summary ---
Author [facility] Address [address] [place] [id number] Care Team Providers Care Refinery Operator Reforming Unit Name Role Phone Edmar Cazares MD Primary Care Provider [phone] Encounter Details Date Type Department Care Team (Late Contact Info) Description 02/06/2025 1:40 PM EDT Lab [facility] [address] [place] [address] Crohn's disease of both small [...] Master's degree (e.g., MA, MS, Chalo, MEd, FICTION AND NONFICTION PROSE WRITER, JIMMIE) 04/28/2023 Comments No Sex and Gender Information Value Date Recorded Sex Assigned at Not on file Legal Sex Female 4:03 PM EDT Gender Identity Not on file Sexual Orientation Not on file documented as of this encounter Plan of Treatment Upcoming Encounters Date Type Department Care Team (Late st Contact Info) Description 02/24/2025 1:00 PM EDT Appointment [facility] OUTPATIENT ONCOLOGY [address] [place] [address] documented as of this encounter Procedures Procedure Name Priority Date/Time Associated Diagnosis Comments QUANTIFERON TB GOLD PLUS CLIENT INCUBATED KIT Routine 02/06/2025 1:37 PM EDT Crohn's disease of both small and large intestine with fistula Iron deficiency anemia, unspecified iron deficiency anemia type documented in this encounter Results * (ABNORMAL) QuantiFERON TB Plus Client Incubated Kit (02/06/2025 1:37 PM EDT) [facility] QuantiFERON Criteria Comment 02/08/2025 11:07 PM EDT [...] 1:37 PM EDT 02/06/2025 1:[address] [facility] - 02/08/2025 11:07 PM EDT Performed at: [address] [place] [id number] Marine Water Tender: Yoel More PhD, Phone: [phone] Rye Mooney MD LAB BLOOD ORDERABLES Final Result [facility] [address] [place] [address], documented in this encounter Visit Diagnoses Diagnosis Crohn's disease of both small and large intestine with fistula Iron deficiency anemia, unspecified iron deficiency anemia type documented in this encounter Care Teams Refinery Operator Reforming Unit Relationship Specialty Start Date End Date Edmar Cazares MD [address] [place] [address] PCP - General News Camera Operator 11/07/24 documented as of this encounter
--- OUTSIDE RECORDS SUMMARY | 2025-02-20 11:16 | XMS_ITS | Clinical Summary ---
Author Organization Healthcare Address [address] [place] [address] Care Team Providers Care Leather Roller Name Role Phone Unavailable Primary Care Provider Unavailabl e Encounters Date Type Department Care Team Description 02/11/2025 Community Orders Community Practice [address] [place] [address] Rey Mooney MD Crohn's disease of both [...] Info) Description 02/26/2025 4:20 PM EDT Appointment [facility] CT [address] [place] [address] Health Maintenance Due Date Last Done Comments [facility]-Depression Screening 1980 [facility]-HIV Screening 1980 [facility]-Hepatitis C Screening 1980 [facility]-/Child/Adol SDOH Screenings 1980 [facility]-Varicella Vaccines (1 of [...] 01/29/2025 Sigmoidoscopy 01/29/2025 [facility]-Colorectal Cancer Screening 01/29/2025 [id number] Vaccine (1 - 2023- season) 2025 [facility]-Influenza [...] age to complete this topic Insurance [address]
--- OUTSIDE RECORDS SUMMARY | 2025-02-20 11:17 | XMS_ITS | Patient Health Record ---
Author Organization [facility] Address [address] [place] [address] Care Team Providers Care Electrical Maintenance Worker Name Role Phone Unknown, PCP Primary Care Provider Jeannette Castellano, [id number] [facility] Reason For Referral No Information [...] Administered Encounters Encounter Location Date Provider Diagnosis [address] [address] 05/15/2024 Annette Castellano PPD screening test Z11.1 [...]
--- OUTSIDE RECORDS SUMMARY | 2025-02-20 11:17 | XMS_ITS | Encounter Summary ---
Author Organization Healthcare Address [address] [place] [address] Care Team Providers Care Sugarcane Planter Name Role Phone Unavailable Primary Care Provider Unavailabl e Reason for Referral * Imaging (Routine) - Authorized Specialty Diagnoses / Procedures Referred By Contac t Referred To Contact Radiology Diagnoses Crohn's disease of both small and large intestine with fistula (CMS/HCC) Procedures CT Enterography Rey Mooney MD 12[address] [facility] [address] [place] [address] Phone: tel: fax: Referral ID Status Reason Start Date Expiration Date V isits Requested Visits Authorized [id number] Authorized 02/11/2025 08/13/2026 1 1 Encounter Details Date Type Department Care Team (Late Contact Info) Description 02/11/2025 [facility] Community Practice [address] [place] [address] Rey Mooney MD [address] [facility] [address] [place] [address] Crohn's disease of both small and large [...] EDT Appointment [facility] [address] [place] [address] Scheduled Orders Name Type Priority Associated Diagnoses Orde r Schedule CT Enterography Imaging Routine Crohn's disease of both small and large intestine with fistula (CMS/HCC) Expected: 02/11/2025 (Approximate), Expires: 08/15/2026 documented as of this encounter Visit Diagnoses Diagnosis Crohn's disease of both small and large intestine with fistula (CMS/HCC)- Primary documented in this encounter
--- OUTSIDE RECORDS SUMMARY | 2025-02-20 11:17 | XMS_ITS | Clinical Summary ---
Author Organization [facility] Address [address] [place] [address] Care Team Providers Care Low Altitude Air Defense Officer Name Role Phone Edmar Cazares MD Primary Care Provider [phone] Allergies Active Allergy Reactions Criticality Noted Date Comments Adalimumab Unknown - High Severity 04/28/2023 Influenza Vac Split Quad Unknown - High Severity 04/28/2023 Infliximab Unknown - Low Severity 04/28/2023 Medications naltrexone 1 mg/mL oral suspension 1 Active DHEA 10 MG capsule A ctive [place]-3 Fatty Acids (FISH-EPA PO) 2 Active vitamin [...] 11 BETSY [Birads] MAE (5 year) Tyrer [place] (lifetime) Colonoscopy DEXA [T-score] Frax [hip/any] Enter the month test was performed. If month not known, enter X' Black numbers = normal results Red numbers = abnormal results Black X = patient reported normal Red X - patient reported abnormal Referred by: Profession: Other info: Encounters Date Type Department Care Team Description 02/06/2025 1:40 PM EDT Lab [facility] [address] [place] [phone] Crohn's disease of both small and large intestine with fistula; Iron deficiency anemia, unspecified iron deficiency anemia type 02/06/2025 Travel 12/18/2024 2:48 PM EDT - 12/18/2024 11:59 PM EDT Hospital Encounter [facility] [address] [facility] [address] [place] [address] Edmar Cazares MD Encounter for screening mammogram [...] Master's degree (e.g., MA, MS, Chalo, MEd, DRIVER LICENSE AGENT, JIMMIE) 04/28/2023 Comments No Sex and Gender [...] Info) Description 02/24/2025 1:00 PM EDT Appointment [facility] [address] [place] [address] Health Maintenance Due Date Last Done [...] screening mammogram for malignant neoplasm of breast [facility] GENETIC ASSESSMENT Routine 12/18/2024 9:24 AM EDT from Last 3 Months Results * (ABNORMAL) QuantiFERON TB Plus Client Incubated Kit (02/06/2025 1:37 PM EDT) [facility] QuantiFERON Criteria Comment 02/08/2025 11:07 PM [...] 1:37 PM EDT 02/06/2025 1:37 PM EDT [facility] - 02/08/2025 11:07 PM EDT Performed at: [address] [place] [id number] Edge Sawyer: Yoel More PhD, Phone: [phone] Rey Mooney MD LAB BLOOD ORDERABLES Final Result [facility] [address] [place] [address], [place] [phone] * Mammo Screening Digital Tomosynthesis Bilateral With [...] MD IMG MAMMOGRAPHY ORDERABLES Final Result * [facility] GENETIC RISK ASSESSMENT QUESTIONNAIRE - , (12/18/2024 9:24 AM EDT) [place] 8.4 AMBWHObyYOU GENETICS NCCN NCCN not met Group Therapy Records Comment:High Risk Cancer Ris k Assessment 12/18/2024 9:24 AM EDT Edmar Cazares MD GENETIC TESTING Final Result S[facility] GUEVARA
[address] [place] [address], [place] [phone] from Last 3 Months Insurance [facility] PPO Care Teams Low Altitude Air Defense Officer Relationship Specialty Start Date End Date Edmar Cazares MD [address] [place] [address] PCP - General Channel Manager 11/07/24
--- OUTSIDE RECORDS SUMMARY | 2025-02-20 11:17 | XMS_ITS | Encounter Summary ---
Author Organization [facility] Address [address] [place] [address] Care Team Providers Care Distillery Worker Name Role Phone Edmar Cazares MD Primary Care Provider [phone] Encounter Details Date Type Department Care Team [...] Master's degree (e.g., MA, MS, Chalo, MEd, COMPRESSOR MECHANIC, JIMMIE) 04/28/2023 Comments No Sex and Gender Information Value Date Recorded Sex Assigned at Not on file Legal Sex Female 4:03 PM EDT Gender Identity Not on file Sexual Orientation Not on file documented as of this encounter Plan of Treatment Upcoming Encounters Date Type Department Care Team (Late st Contact Info) Description 02/24/2025 1:00 PM EDT Appointment [facility] OUTPATIENT ONCOLOGY [address] [place] [address] documented as of this encounter Visit Diagnoses Not on filedocumented in this encounter Care Teams Distillery Worker Relationship Specialty Start Date End Date Edmar Cazares MD [address] [place] [address] PCP - General Quitline Counselor 11/07/24 documented as of this encounter
[2025-02-20 11:35] VITALS: BP 118/64; PULSE 95; RESP 16
[2025-02-20] MEDS: IRON SUCROSE COMPLEX 200 MG in 0.9 % SODIUM CHLORIDE 100 ML 220 MG IV (11:35)
[2025-02-20 12:05] VITALS: BP 111/72; PULSE 95; RESP 16; O2SAT 98
== END 2025-02-20 12:15 | disposition home or self-care (01) ==
LOC: INF 11:13
PROVIDERS: PCP General Practice; Visit Provider Internal Medicine Gastroenterology
DX: D50.9 Iron deficiency anemia, unspecified (principal)
CPT/HCPCS: 96365; J1756

== ENCOUNTER 2025-02-24 09:41 | Outpatient (CLI) | payer BC, SELFPAY ==
--- OUTSIDE RECORDS SUMMARY | 2023-12-05 14:15 | XMS_ITS ---
Author Organization [facility] Address [address] [place] [id number] Care Team Providers Care Hydro Generation Manager Name Role Phone Unknown, PCP Primary Care Provider Jeannette Castellano, [id number] [facility] REASON FOR VISIT Tuberculosis (TB) / PPD Test Encounters Encounter Location Date Provider Diagnosis [address] [facility] [address] [place] [address] 12/05/2023 Annette Castellano Plan Of Treatment No Information Progress Notes * Riley JACOBB:1980 (45 yo F)Acc No.[id number]:12/05/2023 Patient: Meri TAPIA Provider: Oscar Castellano APRN :1980 A ge:43 Y S ex:Female Date:12/05/2023 External Visit ID:[id number] [facility] [facility] Pcp:PCP Unknown Subjective: * Chief Complaints: * 1 . Tuberculosis (TB) / PPD Test. * Medical History: Objective: * Vitals: Assessment: Plan: * Treatment: * Billing Information: * Visit Code: * Procedure Codes: Care Plan Details* * Electronic signature of TA14 304 Annette Castellano APRN on 02/24/2025 at 08:53 AM CDT Sign off status: Pending * Provider: Oscar Castellano APRN Date: 12/05/2023 Generated for Printi ng/Faxing/eTransmitting on: 0 02/24/2025 08:53 AM CDT
--- OUTSIDE RECORDS SUMMARY | 2025-02-06 13:40 | XMS_ITS | Encounter Summary ---
[facility] Organization [facility] Address [address] [place] [id number] Care Team Providers Care Plate Filler Name Role Phone Edmar Cazares MD Primary Care Provider [phone] Encounter Details Date Type Department Care Team (Late Contact Info) Description 02/06/2025 1:40 PM EDT Lab [facility] [address] [place] [address] Crohn's disease of both small [...] Master's degree (e.g., MA, MS, Chalo, MEd, BOARD SETTER, JIMMIE) 04/28/2023 Comments No Sex and Gender Information Value Date Recorded Sex Assigned at Not on file Legal Sex Female 4:03 PM EDT Gender Identity Not on file Sexual Orientation Not on file documented as of this encounter Plan of Treatment Upcoming Encounters Date Type Department Care Team (Late st Contact Info) Description 02/24/2025 1:00 PM EDT Appointment [facility] OUTPATIENT ONCOLOGY [address] [place] [address] documented as of this encounter Procedures Procedure Name Priority Date/Time Associated Diagnosis Comments QUANTIFERON TB GOLD PLUS CLIENT INCUBATED KIT Routine 02/06/2025 1:37 PM EDT Crohn's disease of both small and large intestine with fistula Iron deficiency anemia, unspecified iron deficiency anemia type documented in this encounter Results * (ABNORMAL) QuantiFERON TB Plus Client Incubated Kit (02/06/2025 1:37 PM EDT) [facility] QuantiFERON Criteria Comment 02/08/2025 11:07 PM [...] 1:37 PM EDT 02/06/2025 1:37 PM EDT [facility] - 02/08/2025 11:07 PM EDT Performed at: [address] [place] [id number] Transportation Coordinator: Yoel More PhD, Phone: [phone] Rey Mooney MD LAB BLOOD ORDERABLES Final Result [facility] [address] [place] [address], documented in this encounter Visit Diagnoses Diagnosis Crohn's disease of both small and large intestine with fistula Iron deficiency anemia, unspecified iron deficiency anemia type documented in this encounter Care Teams Plate Filler Relationship Specialty Start Date End Date Edmar Cazares MD [address] [place] [address] PCP - General Wood Car Builder 11/07/24 documented as of this encounter
--- OUTSIDE RECORDS SUMMARY | 2025-02-24 09:54 | XMS_ITS | Clinical Summary ---
Author Organization Healthcare Address [address] [place] [address] Care Team Providers Care Valuation Consultant Name Role Phone Unavailable Primary Care Provider Unavailabl e Encounters Date Type Department Care Team Description 02/11/2025 Community Orders Community Practice [address] [place] [address] Rey Mooney MD Crohn's disease of both [...] Info) Description 02/26/2025 4:20 PM EDT Appointment [facility] [address] [place] [address] Health Maintenance Due Date Last [...] 01/29/2025 Sigmoidoscopy 01/29/2025 [facility]-Colorectal Cancer Screening 01/29/2025 [id number] Vaccine (1 - 2023- season) 2025 [facility]-Influenza [...] age to complete this topic Insurance [address]
--- OUTSIDE RECORDS SUMMARY | 2025-02-24 09:54 | XMS_ITS | Encounter Summary ---
Author Organization [facility] Address [address] [place] [address] Care Team Providers Care Rn Hemo Dialysis Name Role Phone Edmar Cazares MD Primary Care Provider [phone] Encounter Details Date Type Department Care Team [...] Master's degree (e.g., MA, MS, Chalo, MEd, CHASER APPRENTICE, JIMMIE) 04/28/2023 Comments No Sex and Gender Information Value Date Recorded Sex Assigned at Not on file Legal Sex Female 4:03 PM EDT Gender Identity Not on file Sexual Orientation Not on file documented as of this encounter Plan of Treatment Upcoming Encounters Date Type Department Care Team (Late st Contact Info) Description 02/24/2025 1:00 PM EDT Appointment [facility] OUTPATIENT ONCOLOGY [address] [place] [address] documented as of this encounter Visit Diagnoses Not on filedocumented in this encounter Care Teams Rn Hemo Dialysis Relationship Specialty Start Date End Date Edmar Cazares MD [address] [place] [address] PCP - General Automobile Salesman 11/07/24 documented as of this encounter
--- OUTSIDE RECORDS SUMMARY | 2025-02-24 09:54 | XMS_ITS | Clinical Summary ---
Author Organization [facility] Address [address] [place] [address] Care Team Providers Care Business Objects Report Developer Name Role Phone Edmar Cazares MD Primary Care Provider [phone] Allergies Active Allergy Reactions Criticality Noted Date Comments Adalimumab Unknown - High Severity 04/28/2023 Influenza Vac Split Quad Unknown - High Severity 04/28/2023 Infliximab Unknown - Low Severity 04/28/2023 Medications naltrexone 1 mg/mL oral suspension 1 Active DHEA 10 MG capsule A ctive [place]-3 Fatty Acids (FISH-EPA PO) 2 Active vitamin [...] 11 BETSY [Birads] MAE (5 year) Tyrer [place] (lifetime) Colonoscopy DEXA [T-score] Frax [hip/any] Enter the month test was performed. If month not known, enter X' Black numbers = normal results Red numbers = abnormal results Black X = patient reported normal Red X - patient reported abnormal Referred by: Profession: Other info: Encounters Date Type Department Care Team Description 02/06/2025 1:40 PM EDT Lab [facility] [address] [place] [phone] Crohn's disease of both small and large intestine with fistula; Iron deficiency anemia, unspecified iron deficiency anemia type 02/06/2025 Travel 12/18/2024 2:48 PM EDT - 12/18/2024 11:59 PM EDT Hospital Encounter [facility] [address] [facility] [address] [place] [address] Edmar Cazares MD Encounter for screening mammogram [...] Master's degree (e.g., MA, MS, Chalo, MEd, WINDOW AND DOOR INSTALLER, JIMMIE) 04/28/2023 Comments No Sex and Gender [...] Info) Description 02/24/2025 1:00 PM EDT Appointment [facility] OUT[facility]COL[facility]Y [address] [place] [address] Health Maintenance Due Date Last Done [...] screening mammogram for malignant neoplasm of breast [facility] GENETIC ASSESSMENT Routine 12/18/2024 9:24 AM EDT from Last 3 Months Results * (ABNORMAL) QuantiFERON TB Plus Client Incubated Kit (02/06/2025 1:37 PM EDT) [facility] QuantiFERON Criteria Comment 02/08/2025 11:07 PM EDT [...] 1:37 PM EDT 02/06/2025 1:37 PM EDT [facility] - 02/08/2025 11:07 PM EDT Performed at: [address] [place] [id number] Insurance Underwriting Assistant: Yoel More PhD, Phone: [phone] Rey Mooney MD LAB BLOOD ORDERABLES Final Result [facility] [address] [place] [address], [place] [phone] * Mammo Screening Digital Tomosynthesis Bilateral With [...] MD IMG MAMMOGRAPHY ORDERABLES Final Result * [facility] GENETIC RISK ASSESSMENT QUESTIONNAIRE - , (12/18/2024 9:24 AM EDT) [place] 8.4 AMBDNS:Net GENETICS NCCN NCCN not met [facility] Comment:High Risk Cancer Ris k Assessment 12/18/2024 9:24 AM EDT Edmar Cazares MD GENETIC TESTING Final Result [facility] GUEVARA
[address] [facility] [place] [address], [place] [phone] from Last 3 Months Insurance [facility] PPO Care Teams Business Objects Report Developer Relationship Specialty Start Date End Date Edmar Cazares MD [address] [place] [address] PCP - General Exceptional Student Education Teacher 11/07/24
--- OUTSIDE RECORDS SUMMARY | 2025-02-24 09:54 | XMS_ITS | Patient Health Record ---
Author Organization [facility] Address [address] [place] [address] Care Team Providers Care Barrel Ribs Solderer Name Role Phone Unknown, PCP Primary Care Provider Jeannette Castellano, [id number] [facility] Reason For Referral No Information [...] Administered Encounters Encounter Location Date Provider Diagnosis [id number] [address] 05/15/2024 Annette Castellano PPD screening test Z11.1 [...]
--- OUTSIDE RECORDS SUMMARY | 2025-02-24 09:54 | XMS_ITS | Encounter Summary ---
Author Organization Healthcare Address [address] [place] [address] Care Team Providers Care Die Cut Operator Name Role Phone Unavailable Primary Care Provider Unavailabl e Reason for Referral * Imaging (Routine) - Authorized Specialty Diagnoses / Procedures Referred By Contac t Referred To Contact Radiology Diagnoses Crohn's disease of both small and large intestine with fistula (CMS/HCC) Procedures CT Enterography Rey Mooney MD [address] [facility] [address] [place] [address] Phone: tel: fax: Referral ID Status Reason Start Date Expiration Date V isits Requested Visits Authorized [id number] Authorized 02/11/2025 08/13/2026 1 1 Encounter Details Date Type Department Care Team (Late Contact Info) Description 02/11/2025 [facility] [address] [place] [address] Rey Mooney MD [address] [facility] [address] [place] [address] Crohn's disease of both small and large [...] Description 02/26/2025 4:20 PM EDT Appointment [facility] [address] [place] [address] Scheduled Orders Name Type Priority Associated Diagnoses Orde r Schedule CT Enterography Imaging Routine Crohn's disease of both small and large intestine with fistula (CMS/HCC) Expected: 02/11/2025 (Approximate), Expires: 08/15/2026 documented as of this encounter Visit Diagnoses Diagnosis Crohn's disease of both small and large intestine with fistula (CMS/HCC)- Primary documented in this encounter
[2025-02-24 10:00] VITALS: BP 114/54; PULSE 71; RESP 18; TEMP 36.8; O2SAT 99
[2025-02-24] MEDS: IRON SUCROSE COMPLEX 200 MG in 0.9 % SODIUM CHLORIDE 100 ML 220 MG IV (10:00)
[2025-02-24 10:35] VITALS: BP 112/63; PULSE 73
[2025-02-24] MEDS: SODIUM CHLORIDE 0.9% 10ML FLUSH SYRINGE 10 ML IV (10:36)
== END 2025-02-24 10:40 | disposition home or self-care (01) ==
LOC: INF 09:42
PROVIDERS: Visit Provider Internal Medicine Gastroenterology
DX: K50.813 Crohn's disease of both small and large intestine with fistula (principal)
CPT/HCPCS: 96365; J1756

== ENCOUNTER 2025-02-27 11:47 | Outpatient (CLI) | payer BC, SELFPAY ==
--- OUTSIDE RECORDS SUMMARY | 2023-12-05 14:15 | XMS_ITS ---
Author Organization [facility] Address [address] [place] [phone] Care Team Providers Care Panelboard Operator Name Role Phone Unknown, PCP Primary Care Provider Jeannette Castellano, [id number] An[facility]te [facility] [phone] REASON FOR VISIT Tuberculosis (TB) / PPD Test Encounters Encounter Location Date Provider Diagnosis [address] [facility] [address] [place] [address] 12/05/2023 Annette Castellano Plan Of Treatment No Information Progress Notes * Riley JACOBB:1980 (45 yo F)Acc No.[id number]:12/05/2023 Patient: Meri TAPIA Provider: Oscar Castellano APRN :1980 A ge:43 Y S ex:Female Date:12/05/2023 External Visit ID:[id number] [facility] [facility] [facility] Pcp:PCP Unknown Subjective: * Chief Complaints: * 1 . Tuberculosis (TB) / PPD Test. * Medical History: Objective: * Vitals: Assessment: Plan: * Treatment: * Billing Information: * Visit Code: * Procedure Codes: Care Plan Details* * Electronic signature of TA14 304 Annette Castellano APRN on 02/27/2025 at 10:50 AM CDT Sign off status: Pending * Provider: Oscar Castellano APRN Date: 12/05/2023 Generated for Arturoi ng/Faxing/eTransmitting on: 0 02/27/2025 10:50 AM CDT
--- OUTSIDE RECORDS SUMMARY | 2025-02-06 13:40 | XMS_ITS | Encounter Summary ---
Author Organization [facility] Address [address] [place] [address] Care Team Providers Care Valve Liner Rubber Name Role Phone Edmar Cazares MD Primary Care Provider [phone] Encounter Details Date Type Department Care Team (Late st Contact Info) Description 02/06/2025 1:40 PM EDT Lab [facility] [address] [place] [address] Crohn's disease of both small [...] Master's degree (e.g., MA, MS, Chalo, MEd, DIRECTOR WHOLESALE, JIMMIE) 04/28/2023 Comments No Sex and Gender Information Value Date Recorded Sex Assigned at Not on file Legal Sex Female 4:03 PM EDT Gender Identity Not on file Sexual Orientation Not on file Travel History Travel Start Travel End [place] 02/21/2025 02/24/2025 documented as of this encounter Plan of Treatment Upcoming Encounters Date Type Department Care Team (Late st Contact Info) Description 03/24/2025 2:30 PM EDT Appointment [facility] OUTPATIENT ONCOLOGY [address] [place] [address] documented as of this encounter Procedures Procedure Name Priority Date/Time Associated Diagnosis Comments QUANTIFERON TB GOLD PLUS CLIENT INCUBATED KIT Routine 02/06/2025 1:37 PM EDT Crohn's disease of both small and large intestine with fistula Iron deficiency anemia, unspecified iron deficiency anemia type documented in this encounter Results * (ABNORMAL) QuantiFERON TB Plus Client Incubated Kit (02/06/2025 1:37 PM EDT) QuantiFERON Criteria Comment 02/08/2025 11:07 PM EDT [...] Value 0.55 IU/mL 02/08/2025 11:07 PM EDT [facility] QUANTIFERON-TB GOLD PLUS Indetermina te(A) Negative [...] 1:37 PM EDT 02/06/2025 1:37 PM EDT [facility] - 02/08/2025 11:07 PM EDT Performed at: [address] [place] [address] [place] [id number] General Manager Farm: Yoel More PhD, Phone: [phone] us Rey Mooney MD LAB BLOOD ORDERABLES Final Result [facility] [address] [place] [address], [place] [phone] documented in this encounter Visit Diagnoses Diagnosis Crohn's disease of both small and large intestine with fistula Iron deficiency anemia, unspecified iron deficiency anemia type documented in this encounter Care Teams Valve Liner Rubber Relationship Specialty Start Date End Date Edmar Cazares MD [address] [place] [address] PCP - General Milling Supervisor 11/07/24 documented as of this encounter
--- OUTSIDE RECORDS SUMMARY | 2025-02-24 12:34 | XMS_ITS | Encounter Summary ---
Author Organization [facility] Address [address] [place] [id number] Care Team Providers Care Roller Print Tender Name Role Phone Edmar Cazares MD Primary Care Provider [phone] Reason for Visit * Episode Based Medications (Routine) - Authorized Specialty Diagnoses / Procedures Referred By Contac t Referred To Contact Diagnoses Crohn's disease of both small and large intestine with fistula Procedures ID INJ RISANKIZUMAB-RZAA 1 MG Frankie Cm, PharmD [address] [place] [address] Phone: tel: Frankie Cm, PharmD [address] [place] [address] Phone: tel: Referral ID Status Reason Start Date Expiration Date V isits Requested Visits Authorized Authorized 02/13/2025 02/13/2026 1 1 Encounter Details Date Type Department Care Team (Latest Contact Info) Description 02/24/2025 12:34 PM EDT - 02/24/2025 11:59 PM EDT Hospital Encounter [facility] OUTPATIENT ONCOLOGY [address] [place] [address] Crohn's disease of both small and large intestine with fistula (Primary Dx) Discharge Disposition: Home or Self Care Social [...] Master's degree (e.g., MA, MS, Chalo, MEd, STREET VENDOR, JIMMIE) 04/28/2023 Comments No Sex and Gender Information Value Date Recorded Sex Assigned at Not on file Legal Sex Female 4:03 PM EDT Gender Identity Not on file Sexual Orientation Not on file Travel History Travel Start Travel End [place] 02/21/2025 02/24/2025 documented as of this encounter Last Filed Vital Signs Vital Sign Reading Time Taken Comments Blood Pressure 108/73 02/24/2025 12:42 PM EDT Pulse 118 02/24/2025 12:42 PM EDT Temperature 36.6 C (97.8 F) 02/24/2025 12:42 PM EDT Respiratory Rate 16 02/24/2025 12:42 PM EDT Oxygen Saturation - - Inhaled Oxygen Concentration - - Weight 42.2 kg (93 lb) 02/24/2025 12:42 PM EDT Height 154.9 cm (5' 1 ) 02/24/2025 12:42 PM EDT Body Mass Index 17.57 02/24/2025 12:42 PM EDT documented in this encounter Medications at Time of Discharge Acetylcysteine (Nac 600) capsule capsule ciprofloxacin (CIPRO) 500 MG tabletIndications:Interceptor Operator hn's disease with complication, unspecified gastrointestinal tract location Take 1 tablet by mouth 2 (Two) Times a Day. 14 tablet 01/26/2024 DHEA 10 MG capsule Inositol 650 MG tablet methylPREDNISolone (MEDROL) 4 MG dose packIndications:Crohn 's disease with complication, unspecified gastrointestinal tract location Take as directed on package instructions. 1 each 01/26/2024 metroNIDAZOLE (FLAGYL) 500 MG tabletIndications:Interceptor Operator hn's disease with complication, unspecified gastrointestinal tract location Take 1 tablet by mouth 3 (Three) Times a Day. 21 tablet 01/26/2024 naltrexone 1 mg/mL oral suspension 10/26/2020 [place]-3 Fatty Acids (FISH-EPA PO) 03/28/2022 MV-Min-Fe Fum-FA-DHA [...] Info) Description 03/24/2025 2:30 PM EDT Appointment [facility] OUT[facility] [address] [place] [address] documented as of this encounter Visit Diagnoses Diagnosis Crohn's disease of both small and large intestine with fistula- Primary documented in this encounter Administered Medications Inactive Administered Medications - up to 3 most recent administrations Medication Order MAR Action Action Date Dose Rate Site Risankizumab-rzaa (SKYRIZI) 600 mg in sodium chloride 0.9 % 250 mL 600 mg, Intravenous, Administer over 1 Hours, Once, On Mon02/24/25 at 1315, For 1 dose, Allow diluted solution to reach room temperature (if refrigerated) prior to start of infusion.Indications:Crohn's disease of both small and large intestine with fistula New Bag 02/24/2025 1:07 PM EDT 600 mg 25 0 mL/hr sodium chloride 0.9 % infusion 20 mL/hr, Intravenous, Once, On Mon02/24/25 at 1245, For 1 doseIndications:Crohn's disease of both small and large intestine with fistula New Bag 02/24/2025 1:05 PM EDT 20 mL/hr 20 mL/hr documented in this encounter Care Teams Roller Print Tender Relationship Specialty Start Date End Date Edmar Cazares MD [address] [place] [address] PCP - General Plant Wrapper 11/07/24 documented as of this encounter
--- OUTSIDE RECORDS SUMMARY | 2025-02-27 11:50 | XMS_ITS | Patient Health Record ---
Author Organization [facility] Address [address] [place] [address] Care Team Providers Care Vinyl Dipper Name Role Phone Unknown, PCP Primary Care Provider Jeannette Castellano, [id number] [facility] Reason For Referral No Information Medications Medication [...] Administered Encounters Encounter Location Date Provider Diagnosis [address] [address] 05/15/2024 Annette Castellano PPD screening test Z11.1 [...]
--- OUTSIDE RECORDS SUMMARY | 2025-02-27 11:50 | XMS_ITS | Clinical Summary ---
Author Organization Healthcare Address [address] [place] [address] Care Team Providers Care Museum Preparator Name Role Phone Unavailable Primary Care Provider Unavailabl e Encounters Date Type Department Care Team Description 02/11/2025 Community Orders Community Practice [address] [place] [address] Rey Mooney MD Crohn's disease of both [...] Care Team (Late st Contact Info) Description 03/04/2025 3:[address] [facility] [address] [place] [address] Health Maintenance Due Date Last [...] 01/29/2025 Sigmoidoscopy 01/29/2025 [facility]-Colorectal Cancer Screening 01/29/2025 [id number] Vaccine (1 - 2023- season) 2025 [facility]-Influenza [...] age to complete this topic Insurance [address]
--- OUTSIDE RECORDS SUMMARY | 2025-02-27 11:50 | XMS_ITS | Encounter Summary ---
Author Organization Healthcare Address [address] [place] [address] Care Team Providers Care Professor Of Spanish Name Role Phone Unavailable Primary Care Provider Unavailabl e Reason for Referral * Imaging (Routine) - Pending Review Specialty Diagnoses / Procedures Referred By Contac t Referred To Contact Radiology Diagnoses Crohn's disease of both small and large intestine with fistula (CMS/HCC) Procedures CT Enterography Rey Mooney MD [address] [facility] [address] [place] [address] Phone: tel: fax: Referral ID Status Reason Start Date Expiration Date V isits Requested Visits Authorized [id number] Pending Review 02/11/2025 08/13/2026 1 1 Encounter Details Date Type Department Care Team (Late Contact Info) Description 02/11/2025 [facility] [address] [place] [address] Rey Mooney MD [address] [facility] [address] [place], [place] [id number] Crohn's disease of both small and large [...] Department Care Team (Late Contact Info) Description 03/04/2025 3:40 PM EDT Appointment [facility] CT [address] [place] [address] Scheduled Orders Name Type Priority Associated Diagnoses Orde r Schedule CT Enterography Imaging Routine Crohn's disease of both small and large intestine with fistula (CMS/HCC) Expected: 02/11/2025 (Approximate), Expires: 08/15/2026 documented as of this encounter Visit Diagnoses Diagnosis Crohn's disease of both small and large intestine with fistula (CMS/HCC)- Primary documented in this encounter
--- OUTSIDE RECORDS SUMMARY | 2025-02-27 11:50 | XMS_ITS | Clinical Summary ---
Author Organization [facility] Address [address] [place] [address] Care Team Providers Care Auditor In Charge Name Role Phone Edmar Cazares MD Primary Care Provider [phone] Allergies Active Allergy Reactions Criticality Noted Date Comments Adalimumab Unknown - High Severity 04/28/2023 Influenza Vac Split Quad Unknown - High Severity 04/28/2023 Infliximab Unknown - Low Severity 04/28/2023 Medications naltrexone 1 mg/mL oral suspension 1 Active DHEA 10 MG capsule A ctive [place]-3 Fatty Acids (FISH-EPA PO) 2 Active vitamin [...] 11 BETSY [Birads] MAE (5 year) Tyrer [place] (lifetime) Colonoscopy DEXA [T-score] Frax [hip/any] Enter the month test was performed. If month not known, enter X' Black numbers = normal results Red numbers = abnormal results Black X = patient reported normal Red X - patient reported abnormal Referred by: Profession: Other info: Encounters Date Type Department Care Team Description 02/24/2025 12:34 PM EDT - 02/24/2025 11:59 PM EDT Hospital Encounter [facility] OUTPATIENT ONCOLOGY [address] [place] [address] Crohn's disease of both small and large intestine with fistula (Primary Dx) Discharge Disposition: Home or Self Care 02/24/2025 Travel 02/06/2025 1:40 PM EDT Lab [facility] [address] [place] [phone] Crohn's disease of both small and large intestine with fistula; Iron deficiency anemia, unspecified iron deficiency anemia type 02/06/2025 Travel 12/18/2024 2:48 PM EDT - 12/18/2024 11:59 PM EDT Hospital Encounter [facility] [address] [facility] [address] [place] [address] Edmar Cazares MD Encounter for screening mammogram [...] Master's degree (e.g., MA, MS, Chalo, MEd, SNAKER DRIVING HORSES, JIMMIE) 04/28/2023 Comments No Sex and Gender Information Value Date Recorded Sex Assigned at Not on file Legal Sex Female 4:03 PM EDT Gender Identity Not on file Sexual Orientation Not on file Travel History Travel Start Travel End [place] 02/21/2025 02/24/2025 Last Filed Vital Signs Vital Sign Reading Time Taken Comments Blood Pressure 108/73 02/24/2025 12:42 PM EDT Pulse 118 02/24/2025 12:42 PM EDT Temperature 36.6 C (97.8 F) 02/24/2025 12:42 PM EDT Respiratory Rate 16 02/24/2025 12:42 PM EDT Oxygen Saturation 95% 01/26/2024 4:54 PM EDT Inhaled Oxygen Concentration - - Weight 42.2 kg (93 lb) 02/24/2025 12:42 PM EDT Height 154.9 cm (5' 1 ) 02/24/2025 12:42 PM EDT Body Mass Index 17.57 02/24/2025 12:42 PM EDT Plan of Treatment Upcoming Encounters Date Type Department Care Team (Late st Contact Info) Description 03/24/2025 2:30 PM EDT Appointment [facility] OUTPATIENT ONCOLOGY [address] [place] [address] Health Maintenance Due Date Last Done [...] 1:37 PM EDT 02/06/2025 1:37 PM EDT Narrative [facility] - 02/08/2025 11:07 PM EDT Performed at: 01 - [address], [place], [place] [id number] Topographical Surveyor: Yoel More PhD, Phone: [phone] Rey Mooney MD LAB BLOOD ORDERABLES Final Result [facility] [address] [place] [id number], * Mammo Screening Digital Tomosynthesis Bilateral With [...] MD IMG MAMMOGRAPHY ORDERABLES Final Result * [facility] GENETIC RISK ASSESSMENT QUESTIONNAIRE - , (12/18/2024 9:24 AM EDT) [place] 8.4 [facility] GENETICS NCCN NCCN not met [facility]ETICS Comment:High Risk Cancer Ris k Assessment 12/18/2024 9:24 AM EDT Edmar Cazares MD GENETIC TESTING Final Result [facility]
[address] [place] [address], [place] [phone] from Last [address] [place] [address] PPO Care Teams Auditor In Charge Relationship Specialty Start Date End Date Edmar Cazares MD [address] [place] [address] PCP - General Ceramist 11/07/24
--- OUTSIDE RECORDS SUMMARY | 2025-02-27 11:50 | XMS_ITS | Encounter Summary ---
Author Organization [facility] Address [address] [place] [address] Care Team Providers Care Senior Systems Developer Name Role Phone Edmar Cazares MD Primary Care Provider [phone] Encounter Details Date Type Department Care Team (Latest Contact Info) Description 02/24/2025 Travel Social History Tobacco Use Types Packs/Day [...] Master's degree (e.g., MA, MS, Chalo, MEd, FEDERAL AIR MARSHAL, JIMMIE) 04/28/2023 Comments No Sex and Gender Information Value Date Recorded Sex Assigned at Not on file Legal Sex Female 4:03 PM EDT Gender Identity Not on file Sexual Orientation Not on file Travel History Travel Start Travel End [place] 02/21/2025 02/24/2025 documented as of this encounter Plan of Treatment Upcoming Encounters Date Type Department Care Team (Late st Contact Info) Description 03/24/2025 2:30 PM EDT Appointment [facility] OUT[facility]IENT ONCOL[facility]Y [address] [place] [address] documented as of this encounter Visit Diagnoses Not on filedocumented in this encounter Care Teams Senior Systems Developer Relationship Specialty Start Date End Date Edmar Cazares MD [address] [place] [address] PCP - General Air Marshal 11/07/24 documented as of this encounter
--- OUTSIDE RECORDS SUMMARY | 2025-02-27 11:50 | XMS_ITS | Encounter Summary ---
Author Organization [facility] Address [address] [place] [address] Care Team Providers Care Customs Officer Name Role Phone Edmar Cazares MD Primary Care Provider [phone] Encounter Details Date Type Department Care Team [...] Master's degree (e.g., MA, MS, [place], MEd, RETAIL EXPERIENCE SPECIALIST, JIMMIE) 04/28/2023 Comments No Sex and Gender [...] Info) Description 03/24/2025 2:30 PM EDT Appointment [facility] OUTPATIENT ONCOL[facility] [address] [place] [address] documented as of this encounter Visit Diagnoses Not on filedocumented in this encounter Care Teams Customs Officer Relationship Specialty Start Date End Date Edmar Cazares MD [address] [place] [address] PCP - General Substance Abuse Counselor 11/07/24 documented as of this encounter
[2025-02-27 12:03] VITALS: BP 104/69; PULSE 78; RESP 18; O2SAT 98
[2025-02-27] MEDS: IRON SUCROSE COMPLEX 200 MG in 0.9 % SODIUM CHLORIDE 100 ML 220 MG IV (12:03)
[2025-02-27 12:50] VITALS: BP 111/66; PULSE 87; RESP 18; O2SAT 98
== END 2025-02-27 23:59 | disposition home or self-care (01) ==
LOC: INF 11:48
PROVIDERS: PCP General Practice; Visit Provider Internal Medicine Gastroenterology
DX: D50.9 Iron deficiency anemia, unspecified (principal)
CPT/HCPCS: 96365; J1756

== ENCOUNTER 2025-05-29 12:31 | Day surgery (SDC) | payer BC, SELFPAY ==
--- NOTE | 2025-05-27 07:35 | P.HP_ITS ---
History of Present Illness *Admission Date: 05/29/25 *History of present illness: Mrs. Jacob is a 45-year-old female who is here for diagnostic colonoscopy. She does have Crohn's disease that was diagnosed at the age of 21. At the time of her first established revisit on January 28, 2025, she was having very symp tomatic disease with abdominal pain, bloating, abdominal distention, nausea, weight loss and active perianal Crohn's. She had lost down to 89 pounds and was very significantly fatigued with malaise and some brain fog. Labs after the visit showed hemoglobin 8.7, hematocrit 28.1 with microcytic indices (MCV 65.8). Her serum iron was 24 and iron saturation 10.21%. There was significant elevation of her C-reactive protein which was 94.7 and her ASCA IgG was 26.4. CT scan enterography (from 03/10/2025) reviewed and showed severe colonic and terminal ileum involvement with inflammatory bowel disease with marked inflammation and disfiguration of the cecum and foreshortening of the ascending colon with possible [place] colonic fistula. There was also a tight inflammatory stricture of the terminal ileum as well as of the descending colon roughly spanning 5 to 6 cm. There was also evidence of perianal fistulous disease. Initially, I placed her on higher dose prednisone which helped. I did recommend Skyrizi therapy and she has undergone induction and now on maintenance therapy. She noted significant improvement with prednisone. She feels the fistulas are healing. She reports no abdominal pain. She is beginning to gain weight. Her bowel function has improved. The patient did receive 5 parenteral infusions of Venofer. She has had less fatigue and malaise and less brain fog. The examination is deemed medically necessary for diagnostic colonoscopy. The patient has been seen, interviewed and examined prior to the procedure by both myself and the anesthesia provider. [facility] Disclaimer: The information contained in this section may have been updated after the patient was seen, as this information can be updated by other users. Medical History Crohn's disease History of blood transfusion Anemia Surgical History History of appendectomy History of colon resection History of breast surgery Family History Other Breast cancer Cancer Social History Smoking Status: Never smoker alcohol intake: never substance use type: denies use current occupational status: employed Travel in the last 8 weeks?: Inside the [place] Have you lived/traveled outside US in past 30 days?: No Contact w/someone who lives/traveled outside US past 30 days?: No Exposure to someone with infectious disease in past 14 days?: No Do you have a fever (greater than 100.4 F or 38 C)?: No Have you tested positive for COVID-19?: No Exposed to someone with COVID-19 in past 14 days?: No Do you have a sore throat?: No Do you have a cough?: No Do you have any weakness?: No Do you have any diarrhea?: No Are you experiencing any unusual bleeding?: No Do you have any muscle aches/pain?: No Do you have any abdominal pain?: No Are you experiencing loss of taste or smell?: No Review of Systems Review of Systems Review of systems (narrative): Negative *Cardiovascular Comments: Negative *Gastrointestinal Comments: Negative *Genitourinary Comments: Negative *Musculoskeletal Comments: Negative *Neurologic Comments: Negative Meds Home Medications and Allergies Home Medications ?Medication ?Instructions ?Recorded ?Confirmed ?Type dextromethorphan IR 45 1 tab PO BID 01/28/25 History mg-bupropion ER 105 mg biphasic tablet (Auvelity) naltrexone 1.5 mg capsule 2 mg PO DAILY 01/28/2503/11 History omega 2-cko-mpo-fish oil 100 1 cap PO DAILY 01/28/25 0 03/11/25 History mg-160 mg-1,000 mg capsule (Fish Oil) prednisone 10 mg tablet 40 mg (4 x 10 mg) PO DAILY # 150 01/29/25 03/11/25 Rx tabs risankizumab-rzaa 60 mg/mL 600 mg (10 mL) IV Q4W 3 dos es 01/29/25 03/11/25 Rx intravenous solution (Skyrizi) ferrous sulfate 137 mg (45 mg 137 mg PO DAILY #30 tabs 02/12/25 03/11/25 Rx iron) tablet,extended release (Slow Fe) iron sucrose 100 mg iron/5 mL 200 mg (10 mL) IV Q3D 5 doses 02/12/25 03/11/25 Rx intravenous solution (Venofer) risankizumab-rzaa 360 mg/2.4 mL 360 mg (2.4 mL) SQ Q8W #2.4 mL 05/13/25 Rx (150 mg/mL) subcut wearable injector (Skyrizi) sodium,potassium,mag sulfates 17.5 See Rx Instructions PO .COMPLEX 05/15/25 Rx gram-3.13 gram-1.6 gram oral soln #354 mL (Suprep Bowel Prep Kit) New Prescriptions to Start Prescriptions: Allergies Allergy/AdvReac Type Severity Reaction Status Date / Time adalimumab (From Humira) Allergy Unknown Verified 05/29/25 12:51 allergy reaction Influenza Virus Vaccines Allergy Unknown Verified 05/29/25 12:51 allergy reaction Exam *Routine HEENT Exam Head: Present normocephalic Eye: Present EOMI and PERRL ENT: Present mucous membranes moist *Routine Neck Exam Neck: Present supple *Routine Respiratory Exam Respiratory: Present CTA bilaterally *Routine Cardiovascular Exam Cardiovascular: Present RRR *Routine Abdominal Exam Abdominal: Present soft and normoactive bowel sounds; Absent tenderness *Routine Rectal Exam Rectal:: deferred *Routine Genitalia Exam Genitalia:: deferred *Routine Extremities Exam Extremities: Absent cyanosis, clubbing or edema *Routine Skin Exam Skin: Present warm; Absent rash *Routine Neurological Exam Neurological: Present alert and oriented X3 Assessment and Plan *Assessment and plan (1) Perianal Crohn's disease: Status: Acute Category: Medical Code(s): K50.10 - Crohn's disease of large intestine without complications (2) Crohn's disease of both small and large intestine with fistula: Status: Acute Category: Medical Code(s): K50.813 - Crohn's disease of both small and large intestine with fistula Plan A/P: 1. Crohn's disease of small and large intestine with fistula and perianal Crohn's is the preprocedural diagnosis. The patient will be anesthetized/sedated using MAC sedation. The patient has been seen and examined. Cardiac and lung assessment prior to the examination is stable. Proceed with planned diagnostic colonoscopy.
--- NOTE | 2025-05-29 06:55 | P.PCN_ITS ---
[facility] Procedure Note Date: 05/29/25 Time: 13:37 Procedure Note:: Sigmoidoscopy procedure Report: Sigmoidoscopy with TTS balloon dilation Endoscopist: Rey Mooney II, MD Referring physician: Edmar Cazares MD Date of Procedure: May 29, 2025 Equipment: Olympus [id number] adult colonoscope Sedation: MAC sedation Indication: Mrs. Jacob is a 45-year-old female who is here for diagnostic colonoscopy. She does have Crohn's disease that was diagnosed at the age of 21. At the time of her first established revisit on January 28, 2025, she was having very symptomatic disease with abdominal pain, bloating, abdominal distention, nausea, weight loss and active perianal Crohn's. She had lost down to 89 pounds and was very significantly fatigued with malaise and some brain fog. Labs after the visit showed hemoglobin 8.7, hematocrit 28.1 with microcytic indices (MCV 65.8). Her serum iron was 24 and iron saturation 10.21%. There was significant elevation of her C-reactive protein which was 94.7 and her ASCA IgG was 26.4. CT scan enterography (from 03/10/2025) reviewed and showed severe colonic and terminal ileum involvement with inflammatory bowel disease with marked inflammation and disfiguration of the cecum and foreshortening of the ascending colon with possible [place] colonic fistula. There was also a tight inflammatory stricture of the terminal ileum as well as of the descending colon roughly spanning 5 to 6 cm. There was also evidence of perianal fistulous disease. Initially, I placed her on higher dose prednisone which helped. I did recommend Skyrizi therapy and she has undergone induction and now on maintenance therapy. She noted significant improvement with prednisone. She feels the fistulas are healing. She reports no abdominal pain. She is beginning to gain weight. Her bowel function has improved. The patient did receive 5 parenteral infusions of Venofer. She has had less fatigue and malaise and less brain fog. The examination is deemed medically necessary for diagnostic colonoscopy. Procedure: Prior to the procedure, a history and physical exam was performed, and patient's medications and allergies were reviewed. The risks, benefits and alternatives of the sedation and procedure were discussed with the patient. All questions were answered and informed consent was obtained. The patient was brought to the procedure room. Patient identification and proposed procedure were verified by the physician and the nurse. The patient was placed in a left lateral decubitus position and the scope was passed under direct vision. Throughout the procedure, the patient's blood pressure, pulse, and oxygen saturations were monitored continuously. The patient tolerated the procedure well. Findings: On digital rectal examination, there was fibrotic anal stenosis with perianal fistulas that were healing and the colonoscope could not be advanced through the anal canal without initial dilation. The anal canal was initially 6 to 7 mm in diameter and this was gently dilated up to 13.5 mm with a TTS hydrostatic balloon (wire-guided). The scope was then inserted through the anal canal into the rectum and advanced to approximately 20 cm from the anal verge where another very tight fibrotic stricture was encountered and the scope could not advance through this. The initial diameter of this lower sigmoid stricture was approximately 6 mm and this was dilated up to 10 mm with a TTS hydrostatic balloon. Because of the risk of pressing through this fibrotic area, I did feel that advancing proximally with the colonoscope may result in mucosal/submucosal injury and elected to not pass through this fibrotic stricture with the c olonoscope. The procedure was then ended. Impression: 1. Severe Crohn's disease with colonic fibrostenosis and anal fibrostenosis with stricturing Plan: I will discuss the findings with the patient and family and we will need to determine whether we should consider repeating colonoscopy again in 3 to 6 months to allow for further inflammatory healing. I do feel that the strictures are now more fibrotic more so than necroinflammatory. This is progressed to mucosal fibrosis and there is a considerable risk of colonic obstruction or partial obstruction.
[2025-05-29 12:39] VITALS: BMI 21.9
[2025-05-29 12:52] LABS: Urine Pregnancy, HCG Qual. Negative (Negative)
[2025-05-29 12:56] VITALS: BP 144/88; PULSE 88; RESP 18; TEMP 36.7; O2SAT 98
[2025-05-29] MEDS: LACTATED RINGERS 1000ML 1,000 ML 50 ML IV (13:01)
--- NOTE | 2025-05-29 13:08 | P.PNANES_ITS ---
[facility] Disclaimer: The information contained in this section may have been updated after the patient was seen, as this information can be updated by other users. Medical History Crohn's disease History of blood transfusion Anemia Surgical History History of appendectomy History of colon resection History of breast surgery Family History (Updated 05/29/25 @ 12:55 by Edmar Gamino RN) Other Breast cancer Cancer Family history of irritable bowel syndrome Social History (Updated 05/29/25 @ 12:55 by Edmar Gamino RN) Smoking Status: Never smoker alcohol intake: never substance use type: denies use current occupational status: employed Travel in the last 8 weeks?: Inside the [place] Have you lived/traveled outside [place] in past 30 days?: No Contact w/someone who lives/traveled outside [place] past 30 days?: No Exposure to someone with infectious disease in past 14 days?: No Do you have a fever (greater than 100.4 F or 38 C)?: No Have you tested positive for COVID-19?: Yes Exposed to someone with COVID-19 in past 14 days?: No Do you have a sore throat?: No Do you have a cough?: No Do you have any weakness?: No Are you experiencing any nausea/vomitting?: No Do you have any diarrhea?: No Are you experiencing any unusual bleeding?: No Do you have any muscle aches/pain?: No Do you have any abdominal pain?: No Are you experiencing loss of taste or smell?: No [facility] Anesthesia Checklist Patient Identification Patient Identification: Arm Band Structural Data Admitted From: Home Planned Operative Procedure/s: Colonoscopy Consent for Planned Operative Procedure(s) Verified: Yes Verified Documents: Surgical Consent and History and Physical NPO Status Verified Time NPO: 11:30 (finished prep/water) Additional verifications Anesthesia Reactions: Yes (PONV) Airway Assessment Mallampati Score:: Class II C-Spine Mobility Assessed: Yes TMJ Mobility Assessed: Yes Dentition: Good Dentition Neurological Assessment Level of Consciousness: Awake, Alert and Appropriate Anesthesia Plan Anesthesia Risk discussed: Yes Anesthesia Plan: Verified ASA Class: II Anesthesia Type: MAC
[2025-05-29 13:40] VITALS: BP 97/66; PULSE 117; RESP 18; TEMP 36.4; O2SAT 94
[2025-05-29 13:50] VITALS: BP 99/68; PULSE 94; RESP 18; TEMP 36.4; O2SAT 94
[2025-05-29 14:10] VITALS: BP 123/67; PULSE 95; RESP 18; TEMP 36.4; O2SAT 94
[2025-05-29 14:30] VITALS: BP 124/72; PULSE 110; RESP 18; TEMP 36.1; O2SAT 95
[2025-05-29] MEDS: HYDROMORPHONE 2MG/ML SYRINGE 0.5 MG IV (14:30)
[2025-05-29 15:00] VITALS: BP 123/74; PULSE 95; RESP 18; TEMP 36.4; O2SAT 95
[2025-05-29] MEDS: ONDANSETRON 4MG/2ML VIAL 4 MG IV (15:14)
== END 2025-05-29 15:00 | disposition home or self-care (01) ==
PROVIDERS: PCP General Practice; Visit Provider Internal Medicine Gastroenterology
PROC: 0DJD8ZZ Inspection of Lower Intestinal Tract, Via Natural or Artificial Opening Endoscopic (ICD-10-PCS; CPT 45378; principal; 2025-05-29 14:00)
DX: K50.813 Crohn's disease of both small and large intestine with fistula (principal)
CPT/HCPCS: 45340; 81025; C1726; J1171; J2003; J2405; J2704; J7120